=== PATIENT | male | born 1955 | race Caucasian/White ===

== ENCOUNTER 2021-01-25 07:42 | Outpatient (CLI) | payer OTHER, SELFPAY ==
--- NOTE | 2021-01-25 07:48 | USCV_ITS ---
Cy Hercules Age: 65 Gender: M : 1955 Exam Date: 01/25/2021 07:57 Ordering Phys: Dara Mcdonald MD Technologist: Luca Malone Exam Location: [facility] [place] Indication: AAA HISTORY: Diameter (cm) AP x Transverse x Length Velocity (cm/s) Waveform Prox Aorta: 2.03 x 2.22 x 59.50 Mid Aorta: 2.07 x 2.16 x 50.40 Distal Aorta: 1.97 x 2.19 x 81.00 Right Iliac Prox: 0.97 x 1.19 x 53.70 Left Iliac Prox: 1.32 x 1.29 x 77.70 Stent Prox Landing x x Aneurysmal Sac Max x x Lt Lat Sac Dim Rt Lat Sac Dim Stent Dist Landing x x Right Iliac Stent x x Left Iliac Stent x x Right Renal Art Left Renal Art FINDINGS: Mild diffuse plaques in the abdominal aorta Normal abdominal aortic dimension CONCLUSIONS No evidence of any aneurysm in the abdominal aorta or in the proximal common iliac arteries Mild diffuse plaques in the abdominal aorta Dr Jayna Okeefe MD [facility] (Electronically Signed) Final Date: 26 January 2021 13:43 S
== END 2021-01-25 07:43 | disposition home or self-care (01) ==
LOC: RAD 07:44
PROVIDERS: PCP Family Medicine; Visit Provider Family Medicine
DX: Z13.6 Encounter for screening for cardiovascular disorders (principal); F17.210 Nicotine dependence, cigarettes, uncomplicated
CPT/HCPCS: 76706

== ENCOUNTER 2021-08-29 10:45 | Inpatient (IN) | payer OTHER, MEDICARE, MEDICAID, SELFPAY ==
[2021-08-29] VITALS (54 sets, daily range): BP systolic 81–158; BP diastolic 42–107; PULSE 63–206; RESP 12–29; TEMP 36.6; O2SAT 85–100; BMI 22.4
--- NOTE | 2021-08-29 10:56 | CT_ITS ---
WS: [id number] CT ABDOMEN PELVIS TECHNIQUE: Noncontrast CT of the abdomen and pelvis with coronal and sagittal reformatted images. CLINICAL INFORMATION: abd pain COMPARISON: None. DLP: 1106.[address] scans at [facility] use at least one of these dose optimization techniques: automated e xposure control; mA and/or kV adjustment per patient size (includes targeted exams where dose is matc hed to clinical indication); or iterative reconstruction. FINDINGS: Lung bases are well aerated. Noncontrast liver is normal. Normal GE junction. Splenic granulomas. Fat ty atrophy of the pancreas. Splenic artery calcification. Gallbladder is contracted with nodular gall bladder contour likely due to cholesterolosis or adenomyomatosis. This can be followed up with ultras ound. Adrenal glands are normal. No hydronephrosis in either kidney. No obstructing renal or ureteral calculi. Normal Caliber abdominal aorta.Aortic calcification. Normal sigmoid colon. Normal appendix in the RIGHT lower quadrant. No evidence of small or large latesha l obstruction. No free fluid in the abdomen or pelvis. Mild spondylitic changes lumbar spine. CT/CT abdomen pelvis wo con [id number] IMPRESSION: 1. No evidence of small or large bowel obstruction. 2. No free fluid in the abdomen and pelvis. 3. Contracted gallbladder with increased attenuation nodular contour likely du e to cholesterolosis or adenomyomatosis. This can be followed up with ultrasoun d. 4. No hydronephrosis in either kidney. 5. No other significant findings.
--- NOTE | 2021-08-29 10:57 | ECG_ITS ---
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 Measurements Intervals [place] Rate: 89 P: 68 ME: 177 QRS: 95 QRSD: 79 T: 61 QT: 353 QTc: 429 Interpretive Statements SINUS RHYTHM BORDERLINE RIGHT AXIS DEVIATION [QRS AXIS > 90] No previous ECG available for comparison Electronically Signed On 08-29-2021 17:55:27 CDT by Morris Fiore M.D. [id number]
--- NOTE | 2021-08-29 11:02 | W.ED.GIBLEED ---
HPI - GI Bleed General: Chief complaint: GI Bleed Stated complaint: N/V/D Time Seen by Provider: 08/29/21 10:48 History of Present Illness: 65-year-old presents due to abdominal pain nausea vomiting and diarrhea. Does report bloody emesis and blood in stool. States that nausea vomiting diarrhea started today but he has had abdominal cramping and malaise for 3 weeks. Denies any history of liver disease or varices. Denies any history of heavy drinking or cirrhosis. Denies any blood thinners. Denies any chest pain shortness of breath fevers or chills. Denies any dysuria or urethral discharge. States abdominal pain is achy crampy and diffuse. Review of Systems Narrative: - CONSTITUTIONAL: Denies weight loss, fever and chills. - HEENT: Denies changes in vision and hearing. - RESPIRATORY: Denies SOB and cough. - CV: Denies palpitations and CP. - GI: As above - : Denies dysuria and urinary frequency. - MSK: Denies myalgia and joint pain. - SKIN: Denies rash and pruritus. - NEUROLOGICAL: Denies headache, weakness, numbness and syncope. - PSYCHIATRIC: Denies suicidal ideation Physical Exam Narrative: EXAM NARRATIVE: - GENERAL: Alert and oriented x 3. No acute distress. Well-nourished. - EYES: EOMI. Anicteric. - HENT: Atraumatic, no C-spine tenderness. Moist mucous membranes. No scleral icterus. No cervical lymphadenopathy. - LUNGS: Clear to auscultation bilaterally. No accessory muscle use. Equal lung sounds bilaterally. No respiratory distress. - CARDIOVASCULAR: Regular rate and rhythm. No murmur. No JVD. - ABDOMEN: Soft, mild diffuse tenderness, non-distended. Negative CVA tenderness bilaterally, no rebound or guarding, negative Bernard sign. No palpable masses. - EXTREMITIES: No edema. Non-tender. - SKIN: No rashes or lesions. Warm. - NEUROLOGIC: No meningismus or focal neurological deficits. CN II-XII grossly intact. - PSYCHIATRIC: Cooperative. Appropriate mood and affect. Course Vital Signs: Vital signs: Vital Signs Temperature 97.9 F 08/29/21 10:54 Pulse Rate 77 08/29/21 13:30 Respiratory Rate 18 08/29/21 13:30 Blood Pressure 88/58 08/29/21 13:30 Pulse Oximetry 100 08/29/21 13:30 MDM - GI Bleed Medical Decision Making 65-year-old presents with 2 nausea vomiting diarrhea. Does report blood in the stool and emesis. EKG does not show any acute ischemic change. Does have significant MEERA with creatinine elevation of 15. Patient initially also hypotensive. Improved with IV fluids. Troponins elevated to 115 however he is a poor candidate for heparinization or aspirin in light of his GI bleeding. EKG presenting onset of STEMI or acute abnormality. Will trend troponins but it is very likely that troponin elevation is secondary to reduced clearance and MEERA. He denies any chest pain or shortness of breath. Hemoglobin level is within normal limits. Type and cross sent. Remainder of lab work and imaging reviewed. Discussed with hospitalist and they agreed patient would benefit from admission. Patient admitted in guarded condition. Further evaluation management per hospitalist team. Lab Data : 08/29/21 11:02 08/29/21 11:02 Radiology Impressions Abdomen/Pelvis CT 08/29/21 10:56 IMPRESSION: 1. No evidence of small or large bowel obstruction. 2. No free fluid in the abdomen and pelvis. 3. Contracted gallbladder with increased attenuation nodular contour likely due to cholesterolosis or adenomyomatosis. This can be followed up with ultrasound. 4. No hydronephrosis in either kidney. 5. No other significant findings. Laboratory Results WBC 18.1 10^3/uL (4.0-10.0) H 08/29/21 11:02 RBC 5.85 10^6/uL (4.1-5.3) H 08/29/21 11:02 Hgb 17.6 g/dL (11.7-16.6) H 08/29/21 11:02 Hct 50.2 % (42.0-52.0) 08/29/21 11:02 MCV 85.8 fl (80-94) 08/29/21 11:02 MCH 30.1 pg (28.0-34.0) 08/29/21 11:02 MCHC 35.1 g/dL (30.0-36.0) 08/29/21 11:02 RDW 12.6 % (12.1-15.1) 08/29/21 11:02 Plt Count 168 10^3/cmm (130-400) 08/29/21 11:02 MPV 14.1 fL (7.4-10.4) H 08/29/21 11:02 Neut % (Auto) 88.8 % 08/29/21 11:02 Lymph % (Auto) 5.1 % 08/29/21 11:02 [place] % (Auto) 5.1 % 08/29/21 11:02 Eos % (Auto) 0.1 % 08/29/21 11:02 Baso % (Auto) 0.3 % 08/29/21 11:02 Neut # (Auto) 16.05 10^3/uL (1.8-7.7) H 08/29/21 11:02 Lymph # (Auto) 0.9 10^3/uL (0.8-4.8) 08/29/21 11:02 [place] # (Auto) 0.9 10^3/uL (0.2-0.9) 08/29/21 11:02 Eos # (Auto) 0.0 10^3/uL (0.0-0.8) 08/29/21 11:02 Baso # (Auto) 0.1 10^3/uL (0.0-0.1) 08/29/21 11:02 Nucleated RBC % (auto) 0 % 08/29/21 11:02 Nucleated RBCs # 0.0 /100WBC 08/29/21 11:02 PT 13.90 SECONDS (12.1-14.9) 08/29/21 11:02 INR 1.03 (0.8-1.2) 08/29/21 11:02 APTT 34.8 SECONDS (23.9-36.7) 08/29/21 11:02 Sodium 138 mmol/L (136-145) 08/29/21 11:02 Potassium 5.0 mmol/L (3.5-5.1) 08/29/21 11:02 Chloride 87 mmol/L (98-107) L 08/29/21 11:02 Carbon Dioxide 15 mmol/L (22-29) L 08/29/21 11:02 Anion Gap 41.0 (5-19) H 08/29/21 11:02 BUN 269 mg/dL (8-23) H* 08/29/21 11:02 Creatinine 15.9 mg/dL (0.7-1.2) H* 08/29/21 11:02 GFR Calculation 3.1 mL/min (90-130) L 08/29/21 11:02 Glucose 170 mg/dL (65-115) H 08/29/21 11:02 Calculated Osmolality 382 mOsm/kg (285-295) H 08/29/21 11:02 Lactate 1.5 mmol/L (0.5-2.2) 08/29/21 11:35 Calcium 9.9 mg/dL (8.5-10.5) 08/29/21 11:02 Total Bilirubin 0.4 mg/dL (0.15-1.2) 08/29/21 11:02 AST 11 U/L (0-40) 08/29/21 11:02 ALT 7 U/L (0-41) 08/29/21 11:02 Alkaline Phosphatase 96 IU/L (40-130) 08/29/21 11:02 Troponin T Baseline 115 ng/L (0-15) H* 08/29/21 11:02 Total Protein 8.5 g/dL (6.6-8.7) 08/29/21 11:02 Albumin 4.6 g/dL (3.5-5.2) 08/29/21 11:02 Globulin 3.9 g/dL (1.3-4.6) 08/29/21 11:02 Lipase 48 U/L (13-60) 08/29/21 11:02 SARS-CoV-2 Ag (Rapid) Negative (Negative) 08/29/21 11:20 Blood Type O Negative 08/29/21 11:35 Rho(D) Type Negative 08/29/21 11:35 Antibody Screen Negative 08/29/21 11:35 EKG Data EKG 1: Other EKG comments: Normal sinus rhythm, rate of 89, no sign of acute ischemia or other acute abnormality. Critical Care Time Critical Care Time: Critical Care Time: Yes Total Critical Care Time: 45 Attestation: This case had a high probability of a clinically significant, sudden, or life threatening deterioration of this patient's condition which required my full and direct attention, intervention and personal management. Discharge Plan Discharge Condition: Stable Referrals: Jose Miguel Ravi [Primary Care Provider] - Coding Level of Care Code ED Egg Pasteurizer for Chg Chari
[2021-08-29 11:09] LABS: Basophils # 0.1 10^3/uL (0.0-0.1); Basophils % 0.3 %; Eosinophils % 0.1 %; Hematocrit 50.2 % (42.0-52.0); Hemoglobin 17.6 g/dL (11.7-16.6); Lymphocytes # 0.9 10^3/uL (0.8-4.8); Lymphocytes % 5.1 %; Mean Corpuscular HGB Conc 35.1 g/dL (30.0-36.0); Mean Corpuscular Hemoglobin 30.1 pg (28.0-34.0); Mean Corpuscular Volume 85.8 fl (80-94); Mean Platelet Volume 14.1 fL (7.4-10.4); Monocytes # 0.9 10^3/uL (0.2-0.9); Monocytes % 5.1 %; Neutrophils # 16.05 10^3/uL (1.8-7.7); Neutrophils % 88.8 %; Nucleated Red Blood Cells % 0 %; Platelet Count 168 10^3/cmm (130-400); Red Blood Count 5.85 10^6/uL (4.1-5.3); Red Cell Distribution Width 12.6 % (12.1-15.1); White Blood Count 18.1 10^3/uL (4.0-10.0)
[2021-08-29] MEDS: sodium chloride 0.9% 1,000 ML 999 ML IV ×3 (11:12→14:15)
[2021-08-29] MEDS: pantoprazole 40 mg SDV IVP ×2 (11:14→17:49)
[2021-08-29] MEDS: ondansetron 2 mg/ML SDV 2 mL 4 MG IVP (11:15)
[2021-08-29 11:19] LABS: INR 1.03 (0.8-1.2); Partial Thromboplastin Time 34.8 SECONDS (23.9-36.7)
[2021-08-29 11:26] LABS: Alanine Aminotransferase 7 U/L (0-41); Albumin Level 4.6 g/dL (3.5-5.2); Alkaline Phosphatase 96 IU/L (40-130); Aspartate Amino Transferase 11 U/L (0-40); Calcium 9.9 mg/dL (8.5-10.5); Carbon Dioxide 15 mmol/L (22-29); Chloride 87 mmol/L (98-107); Globulin 3.9 g/dL (1.3-4.6); Glomerular Filtration Rate 3.1 mL/min (90-130); Glucose 170 mg/dL (65-115); Lipase 48 U/L (13-60); Sodium 138 mmol/L (136-145); Total Bilirubin 0.4 mg/dL (0.15-1.2); Total Protein 8.5 g/dL (6.6-8.7); Troponin(5th) Baseline 115 ng/L (0-15)
[2021-08-29 11:33] LABS: Osmolality Calculated 382 mOsm/kg (285-295)
[2021-08-29 11:34] LABS: Slide Review Slide Review Perform
[2021-08-29 11:35] LABS: Blood Urea Nitrogen 269 mg/dL (8-23)
[2021-08-29 11:46] LABS: SARS Covid-2 Antigen Negative (Negative)
[2021-08-29 12:00] LABS: Lactate (Lactic Acid level) 1.5 mmol/L (0.5-2.2)
[2021-08-29] MEDS: piperacillin-tazobactam 3.375 GM in sodium chloride 0.9% (plus) 50 ML IV ×2 (12:24→19:45)
[2021-08-29] MEDS: vancomycin 1,250 MG/250 ML PIGGYBACK 250 MG IV (13:02)
--- NOTE | 2021-08-29 13:55 | XR_ITS ---
WS: [id number] Portable AP upright chest, 08/29/2021 Clinical Data: baseline Comparison: None. Findings: No nodules, masses or effusions are seen. The heart is normal. The pulmonary vascularity is not increased. No pneumonia or pneumothorax is seen. The aortic arch shows mild tortuosity. Monitor leads are on the chest wall. XR/XR chest 1V portable [id number] Impression: Atherosclerosis.
--- NOTE | 2021-08-29 14:00 | USCV_ITS ---
DiomedesCy Age: 65 Gender: M : 1955 Exam Date: 08/29/2021 18:47 Ordering Phys: Kaci Sosa MD Technologist: RAD [place] [facility] [place]: elevated Troponin. No history of cardiac intervention per patient. BP: 101 / 59 HR: 66 Rhythm: Sinus Technical Quality: Adequate MEASUREMENTS (Male / Female) Normal Values 2D ECHO LV Diastolic Diameter PLAX 4.0 cm 4.2 - 5.9 / 3.9 - 5.3 cm LV Systolic Diameter PLAX 2.3 cm IVS Diastolic Thickness 1.3 cm 0.6 - 1.0 / 0.6 - 0.9 cm IVS Systolic Thickness 1.6 cm LVPW Diastolic Thickness 1.4 cm 0.6 - 1.0 / 0.6 - 0.9 cm LVPW Systolic Thickness 1.2 cm LVOT Diameter 2.0 cm LV Ejection Fraction 2D Teich 74.9 % LV Ejection Fraction MOD 2C 73.0 % LV Ejection Fraction 2C AL 73.4 % LA Diameter 3.6 cm LA Width 3.0 cm LA Height 4.7 cm RA Width 3.0 cm RA Height 4.0 cm Aorta at Sinotubular Diameter 3.5 cm IVC Diameter 1.9 cm M-MODE Aortic Annulus Diameter 3.3 cm LA Ao Ratio MM 1.2 MV E Point Septal Separation 0.6 cm DOPPLER AV Peak Velocity 134.0 cm/s LVOT Peak Velocity 98.0 cm/s AV Area Cont Eq vti 2.6 cm squared AV Area Cont Eq pk 2.4 cm squared MV Peak Velocity 93.0 cm/s MV Area PHT 2.5 cm squared Mitral E to A Ratio 0.8 MV E' Velocity 42.5 cm/s Mitral E to MV E' Ratio 10.6 Mitral E to LV E' Lateral Ratio 9.7 Mitral E to LV E' Septal Ratio 11.7 TR Peak Velocity 203.0 cm/s TR Peak Gradient 16.5 mmHg TV Peak E Velocity 48.0 cm/s Right Atrial Pressure 5.0 mmHg Pulmonary Artery Systolic Pressu 21.5 mmHg PV Peak Velocity 131.0 cm/s RV Acceleration Time 0.1 s RV Ejection Time 0.4 s RV AcT/ET 0.3 FINDINGS Left Ventricle Normal left ventricular size and systolic function, EF 70 %. No regional wall motion abnormalities. Right Ventricle The right ventricle is normal in size and function. Right Atrium The right atrium is normal in size. Left Atrium The left atrium is normal in size. Mitral Valve No gross abnormalities noted Aortic Valve Thickened aortic valve. Tricuspid Valve Trace tricuspid valve regurgitation. Pulmonic Valve Pulmonic valve not well visualized. Pericardium Normal pericardium without effusion. Aorta Normal aortic annulus size. IVC Normal inferior vena cava. CONCLUSIONS Normal left ventricular size and systolic function, EF 70 %. No regional wall motion abnormalities. Trace tricuspid valve regurgitation. There is no pericardial effusion. There are no intracardiac masses. No similar previous studies are available for comparison Dr Jayna Okeefe MD [facility] (Electronically Signed) Final Date: 29 August 2021 23:00 S
--- NOTE | 2021-08-29 14:00 | ECG_ITS ---
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 Measurements Intervals [place] Rate: 70 P: 69 IN: 179 QRS: 85 QRSD: 80 T: 57 QT: 388 QTc: 421 Interpretive Statements SINUS RHYTHM Compared to ECG 08/29/2021 11:15:11 No significant changes Electronically Signed On 08-29-2021 17:54:54 CDT by Morris Fiore M.D. [id number]
--- NOTE | 2021-08-29 14:01 | P.HP_ITS ---
Providers/Chief Complaint Primary Care Provider: Jose Miguel Ravi Chief Complaint: N/V/D History of Present Illness Cy Hercules is a 65 year old male with no significant past medical history except hypertension, hyperlipidemia presented to the ER today with complaint of nausea vomiting diarrhea. Going on for the last 3 weeks as per the . She states that she has asked him to come to the ER in the past but he was adamantly refusing. Then they lost power so she had to go to a neighbor's house to call EMS to bring him to the hospital. He has had episodes of mild confusion at times were it seems he dozes off but has not really had true altered mental status. She said about 3 weeks ago he started getting sick. He is had various kinds of foods, including Powerade, Gatorade, electrolyte mixes but has not been able to keep anything down including clear liquids. He has no appetite. He has been feeling weak. Diarrhea as present 2-3 episodes per day and is watery, no blood in it. There is no clear hematemesis but she says since yesterday she has seen a little bit of coffee-ground/blood-tinged material in the vomitus. Patient and his attribute that to him continuously retching. His epigastric region is a little sore to palpation due to repeated retching and dry heaving. Review of systems are negative other than what is noted above. He denies chest pain, shortness of breath, palpitations, constipation, feeling too hot or too cold, confused. Patient is alert oriented x3. He knows where he has he knows what is going on and able to provide a history. He says he is already feeling a little bit better after having IV fluids. Of note patient has been taking ibuprofen and etodolac daily for chronic pain. ER course: On arrival blood pressure borderline low. Patient given liter normal saline bolus and labs ordered. Labs significant for creatinine 15.1 and BUN to 69. He has not had any urine output since yesterday. Spears was placed and nothing much came out as per nursing staff. Hospitalist was called for admission. Troponin elevated 115. EKG did not reveal any ischemic changes. Past medical history Prediabetes Hypertension Hyperlipidemia Family history Mom and dad have diabetes No history of heart disease Social history Former smoker, quit August 27, 2021. Has smoked for 50 years Denies alcohol use Denies illicit drug use Follows with at [facility]. Medications/Allergies Home Medications Medication Instructions Recorded Confirmed Last Taken Type aspirin 81 mg tablet,delayed 81 mg PO DAILY 08/29/21 08/29/21 08/29/21 History release atorvastatin 40 mg tablet 20 mg PO QPM 08/29/21 08/29/21 08/28/21 History cholecalciferol (vitamin D3) 50 50 mcg PO DAILY 08/29/21 08/29/21 08/29/21 History mcg (2,000 unit) capsule etodolac 400 mg tablet,extended 400 mg PO DAILY 08/29/21 08/29/21 08/29/21 History release 24 hr ibuprofen 200 mg tablet (Advil) 200 mg PO Q6H PRN 08/29/21 08/29/21 Unknown History lisinopril 40 mg tablet 40 mg PO DAILY 08/29/21 08/29/21 08/29/21 History omega 7-rjb-ejx-fish oil 1,000 mg 1 cap PO BID 08/29/21 08/29/21 08/29/21 History (120 mg-180 mg) capsule (Fish Oil) Allergies Allergy/AdvReac Type Severity Reaction Status Date / Time No Known Allergies Allergy Verified 08/29/21 14:36 Vitals/I&O/Wt Last Vital Signs Temp 97.9 F 08/29/21 10:54 Pulse 77 08/29/21 13:30 Resp 18 08/29/21 13:30 BP 88/58 08/29/21 13:30 Pulse Ox 100 08/29/21 13:30 08/28/21 08/29/21 08/29/21 22:59 06:59 14:59 Intake Total 50 / 50 Balance 50 / 50 Weight last 48 hrs Weight 79.379 kg Physical Exam Narrative: General: Alert oriented x3, patient seen laying in bed appearing comfortable at this time. Appears severely dehydrated HEENT: Normocephalic, atraumatic, EOMI, dry oral mucosa, dry lips, appears deh ydrated hypovolemic Cardio: Regular rate rhythm, normal S1-S2, no murmurs, no chest pain Respiratory: Good bilateral air entry, no wheezes no rhonchi appreciated GI: Abdomen soft, nontender, nondistended, bowel sounds +, mild tenderness to palpation at epigastric region Behavior: Appropriate and cooperative Extremities: no edema, no cyanosis Data : 08/29/21 11:02 08/29/21 11:02 A&P Assessment and plan (1) Renal failure: Status: Acute (2) High anion gap metabolic acidosis: Status: Acute (3) Hypovolemia: Status: Acute (4) Hypotension: Status: Acute (5) Hematemesis: Status: Acute (6) Anuria: Status: Acute (7) Hypertension: Status: Acute (8) Hyperlipidemia: Status: Acute (9) Pre-diabetes: Status: Acute (10) Diarrhea: Status: Acute (11) Leukocytosis: Status: Acute Plan #Acute renal failure, anuric #Severe dehydration secondary to nausea, vomiting #Diarrhea, 2-3 episodes a day #High anion gap metabolic acidosis to uremia and element of possible starvation ketosis #Hypovolemia #Leukocytosis most likely stress response #Hematemesis -Status post 2 L normal saline bolus. Started normal saline 125 cc/h and fluid challenge patient. Patient may require dialysis within next 24 to 48 hours. -Continue on IV fluids for now. If needed may add vasopressors. Continue to monitor blood pressure. - Place Spears catheter, monitor for urine output ? Repeat labs in the morning ? Check procalcitonin, lactic acid, CPK, vasculitis work-up, creatinine, urine creatinine, phosphorus, TSH, uric acid. ? We will discuss nephrology regarding potential kidney biopsy at some point ? Continue to hydrate patient, add thiamine ? Keep n.p.o. for now ? Zofran and Reglan for nausea and vomiting ? Leukocytosis most likely stress response. Patient did receive 1 dose of Vanco and Zosyn in the ER but I will hold off on giving further antibiotics at this time ? Check blood cultures, check urine culture ? Stool studies for work-up of diarrhea, stool culture, C. difficile -Nephrology consulted and on board. Will await recommendations -We will continue to monitor patient's hemoglobin. I will add Protonix 40 twice daily for now. Hemoglobin 17.6 on admission. Seems to be hemoconcentrated. If he actively has more I will consider doing a complete GI work-up. For now we will FOBT and monitor patient. I will repeat labs tonight. #Hypertension #Hyperlipidemia #Prediabetes ? Hold all home medications for now Full code DVT prophylaxis: SCD for now. We will hold off on adding pharmacological DVT prophylaxis Attestations Medical Necessity Statement*: Patient will require ICU level care for m anagement of acute renal failure. I expect him to stay 48 to 72 hours in the hospital or longer. Critical Care Time: The high probability of a clinically significant, sudden or life threatening deterioration of the patient's [] system(s) required my full and direct attention, intervention and personal management. The critical care time is as shown. This time is in addition to time spent performing any reported procedures but includes the following: [x] Data and vital sign review and interpretation [x] Patient assessment, examination and intervention [x] Documentation [x] Medication orders and management Critical Care Time (min): 30 Coding Level of Care Code Acute Audiology Assistant for Chg Fwd Diagnoses Renal failure N19 High anion gap metabolic acidosis E87.2 Hypovolemia E86.1 Hypotension I95.9 Hematemesis K92.0 Anuria R34 Hypertension I10 Hyperlipidemia E78.5 Pre-diabetes R73.03 Diarrhea R19.7 Leukocytosis D72.829
[2021-08-29 14:36] LABS: Troponin 5 2HR 83.03 ng/L (0-15)
--- NOTE | 2021-08-29 16:00 | ECG_ITS ---
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 Measurements Intervals [place] Rate: 68 P: 68 MO: 187 QRS: 81 QRSD: 96 T: 54 QT: 412 QTc: 439 Interpretive Statements SINUS RHYTHM Compared to ECG 08/29/2021 14:13:58 No significant changes Electronically Signed On 08-29-2021 17:58:48 CDT by Morris Fiore M.D. [email or web address] [facility] [id number]
--- NOTE | 2021-08-29 16:34 | PM.CONSULT ---
Providers/Reason For Consult Consulting Physician/Specialty*: Nephrology Reason for Consult*: Renal Failure Attending Physician: Kaci Sosa MD Primary Care Provider: Jose Miguel Ravi History of Present Illness History of Present Illness Thank you for consultation, today had the pleasure of reviewing this very pleasant 65-year-old gentleman for evaluation of acute renal failure. He presented today to the hospital with complaints of nausea vomiting and hematemesis with some associated diarrhea with some abdominal cramping and malaise for last 3 weeks. On arrival, initial lab test demonstrated a significantly elevated creatinine of 15.9 and BUN of 269 with a bicarb of 15 and an anion gap of 41 with lactic acid of 1.5. He denies any knowledge of acute or chronic kidney disease, is never seen a kidney specialist or required hemodialysis. He said he had labs roughly 1 year ago at the [facility] where nothing abnormal was identified as far as he was aware. No difficulty passing his urine, however he has noticed that the volume of urine output has significantly decreased over the last week and a half. Urine is clear, nonbloody or cloudy. He started lisinopril roughly 6 months ago for hypertension. He takes a combination of Etodolac once daily as well as ibuprofen 400 mg twice daily and has done daily for the last 5 years for degenerative joint disease in his back. Denies any extremity edema or other hypervolemic symptoms. In regards to uremic symptoms, his does say that his mentation is foggy, he is more irritable and has episodes where he would look spacey. Normally has much less irritable disposition. Blood pressure is on the lower side, this is unusual for him. No other acute symptoms. No history of other systemic diseases except for hypertension Medications/Allergies Home Medications Medication Instructions Recorded Confirmed Last Taken Type aspirin 81 mg tablet,delayed 81 mg PO DAILY 08/29/21 08/29/21 08/29/21 History release atorvastatin 40 mg tablet 20 mg PO QPM 08/29/21 08/29/21 08/28/21 History cholecalciferol (vitamin D3) 50 50 mcg PO DAILY 08/29/21 08/29/21 08/29/21 History mcg (2,000 unit) capsule etodolac 400 mg tablet,extended 400 mg PO DAILY 08/29/21 08/29/21 08/29/21 History release 24 hr ibuprofen 200 mg tablet (Advil) 200 mg PO Q6H PRN 08/29/21 08/29/21 Unknown History lisinopril 40 mg tablet 40 mg PO DAILY 08/29/21 08/29/21 08/29/21 History omega 7-fxd-nmm-fish oil 1,000 mg 1 cap PO BID 08/29/21 08/29/21 08/29/21 History (120 mg-180 mg) capsule (Fish Oil) Allergies Allergy/AdvReac Type Severity Reaction Status Date / Time No Known Allergies Allergy Verified 08/29/21 14:36 Vitals/I&O/Wt Last Vital Signs Temp 97.9 F 08/29/21 10:54 Pulse 70 08/29/21 14:20 Resp 16 08/29/21 14:20 BP 90/60 08/29/21 14:20 Pulse Ox 100 08/29/21 14:20 08/29/21 08/29/21 08/29/21 06:59 14:59 22:59 Intake Total 50 / 50 Balance 50 / 50 Weight last 48 hrs Weight 79.379 kg Physical Exam Narrative: Constitutional: Awake, comfortable HEENT: Wet mucosa, no jvp, non icteric Lungs: Bilaterally clear without discernible wheeze or rales in all lung zones CVS: S1 S2, no murmurs Abdo: Soft, BS ok Ext 4: Minimal edema, peripheral perfusion with no cyanosis Neurological: Grossly non-focal Data : 08/29/21 11:02 08/29/21 11:02 Micro: Microbiology 08/29/21 13:01 Blood Culture - Preliminary Blood SPECIMEN COLLECTED 08/29/21 13:59 Blood Culture - Preliminary Blood SPECIMEN COLLECTED A&P Assessment and plan (1) Renal failure: 1. 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 Of note CT scan demonstrated normal atrophic appearing kidneys, suggesting that there is an element of acute renal failure. We lack any historical information for evaluation of chronicity. Any hematemesis may also lead to an further elevation of urea following gastric blood breakdown and reabsorption. Work-up to include urinalysis, urine sodium, creatinine, urea, protein We will get CPK, TSH, uric acid, SPEP, ANCA, KALEY with reflex, C3, C4. Will consider kidney biopsy in the next few days He has subtle uremic symptoms including mild tremor, mental fogginess but no other acute uremic symptoms at this time. With this in mind I will give him a chance to recover renal function over the next 24 hours, and if there is no recovery will initiate dialysis. Continue gentle IV hydration with isotonic IV fluids (see below) at 100 cc/h. Dose medication for GFR less than 15 Avoid usual nephrotoxins Strict I's and O's 2. Hematemesis Given his exposure to anti-inflammatory medications, at high risk of having peptic ulcer disease, gastric and esophagitis etc. If hematemesis becomes more profound, okay to give DDAVP for uremic platelet dysfunction. Hemoglobin 17.6 suggesting some element of hemoconcentration Close monitoring of H&H and vitals Management per general medicine 3. Chemistry Anion gap metabolic acidosis almost certainly secondary to severe uremia Will give half-normal saline with bicarb infusion Close monitoring of chemistry given his renal failure 4. Hemodynamics Blood pressure on the softer side, as we hydrate him, hopefully that should come in, close monitoring in the ICU. Keep MAP greater than 65 mmHg, pressors as needed. is at bedside, I answered all of her questions to her satisfaction. Thank you for consultation, it is a pleasure to follow these cases with you Exam and interview performed with aid of bedside RN using telemedicine Time spent 20 min inc > 50% of time in face to face counseling Mehul Swan MD [facility] [phone] Status: Acute Coding Level of Care Code Acute Tablet Technician for Abbyg Fwd Diagnoses Renal failure N19
[2021-08-29 17:32] LABS: Troponin 5 6HR 76.31 ng/L (0-15)
[2021-08-29] MEDS: sodium chloride 0.9% 1,000 ML 125 ML IV (17:49)
[2021-08-29 17:56] LABS: Complement C3 90 mg/dL (90-180); Creatine Phosphokinase 119 U/L (39-308); Thyroid Stimulating Hormone 0.89 uIU/mL (0.27-4.20); Uric Acid 15.2 mg/dL (3.4-7.0)
[2021-08-29] MEDS: sodium bicarbonate 150 MEQ in dextrose 5% 1,000 ML 100 MEQ IV (18:02)
[2021-08-29 18:04] LABS: Ketone (Acetest) Serum Negative (Negative)
[2021-08-29 18:16] LABS: Charge for UA Resulting for Rev
--- NOTE | 2021-08-29 18:19 | PC.NURSE ---
Pt was brought from ER at 1730. States only complaint is nausea. Spears started per orders. 700 mL of urine returned.
[2021-08-29 18:40] LABS: Procalcitonin 0.67 ng/mL (0-0.5)
[2021-08-29 18:43] LABS: Creatinine Urine, Random 138 mg/dL (39-259)
[2021-08-29 18:48] LABS: Add Urine Microscopic? YES; Bilirubin Urine Neg (Negative); Blood Urine 2+ (Negative); Glucose Urine UA Norm (Normal); Ketones Urine Negative (Negative); Leukocyte Esterase Urine Negative (Negative); Nitrate Urine Negative (Negative); Protein Urine Neg (Negative); UPRO/UCREAT Ratio 0.17 mg/mg CR; Urine Appearance Clear (CLEAR); Urine Color Yellow (Yellow); Urine Creatinine 135 mg/dL (39-259); Urine Protein Random 23 mg/dL; Urine Random Sodium 36 mmol/L; Urobilinogen Urine Norm (Negative); pH Urine 5 (5-7)
[2021-08-29 18:49] LABS: Add Urine Culture? Yes; Bacteria Urine 3+ /hpf; Bilirubin Urine Neg (Negative); Blood Urine 2+ (Negative); Glucose Urine UA Norm (Normal); Ketones Urine Negative (Negative); Leukocyte Esterase Urine Negative (Negative); Nitrate Urine Negative (Negative); Protein Urine Neg (Negative); RBC Urine 0-4 /hpf (0-2); Squamous Epithelial Cell Urine 0-4 /hpf (0-5); Urine Appearance Clear (CLEAR); Urine Color Yellow (Yellow); Urobilinogen Urine Norm (Negative); WBC Urine 0-4 /hpf (0-5); pH Urine 5 (5-7)
[2021-08-29 20:29] LABS: Anion Gap 30.5 (5-19); Calcium 8.2 mg/dL (8.5-10.5); Carbon Dioxide 17 mmol/L (22-29); Chloride 102 mmol/L (98-107); Glomerular Filtration Rate 3.7 mL/min (90-130); Glucose 148 mg/dL (65-115); Potassium 4.5 mmol/L (3.5-5.1); Sodium 145 mmol/L (136-145)
[2021-08-29 20:39] LABS: Osmolality Calculated 378 mOsm/kg (285-295)
[2021-08-29 20:41] LABS: Blood Urea Nitrogen 224 mg/dL (8-23)
--- NOTE | 2021-08-29 23:00 | ECG_ITS ---
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 Measurements Intervals [place] Rate: 66 P: 55 CA: 193 QRS: 66 QRSD: 85 T: 53 QT: 408 QTc: 429 Interpretive Statements SINUS RHYTHM Compared to ECG 08/29/2021 16:37:45 No significant changes Electronically Signed On 08-30-2021 0:26:46 CDT by Morris Fiore M.D. [id number]
[2021-08-30] VITALS (73 sets, daily range): BP systolic 87–134; BP diastolic 47–74; PULSE 50–80; RESP 9–28; TEMP 36.3–36.9; O2SAT 73–100; BMI 24.1
[2021-08-30] MEDS: acetaminophen 325 mg Tablet 650 MG PO (00:25)
[2021-08-30] MEDS: ondansetron 2 mg/ML SDV 2 mL 4 MG IVP (00:31)
[2021-08-30] MEDS: sodium chloride 0.9% 1,000 ML 125 ML IV (01:39)
[2021-08-30 02:44] LABS: Basophils # 0.1 10^3/uL (0.0-0.1); Basophils % 0.6 %; Eosinophils # 0.3 10^3/uL (0.0-0.8); Eosinophils % 2.3 %; Hematocrit 35.9 % (42.0-52.0); Hemoglobin 12.5 g/dL (11.7-16.6); Lymphocytes # 0.8 10^3/uL (0.8-4.8); Lymphocytes % 5.3 %; Mean Corpuscular HGB Conc 34.8 g/dL (30.0-36.0); Mean Corpuscular Hemoglobin 29.5 pg (28.0-34.0); Mean Corpuscular Volume 84.7 fl (80-94); Monocytes # 0.7 10^3/uL (0.2-0.9); Monocytes % 4.9 %; Neutrophils # 12.45 10^3/uL (1.8-7.7); Neutrophils % 86.4 %; Nucleated Red Blood Cells % 0 %; Platelet Count 95 10^3/cmm (130-400); Red Blood Count 4.24 10^6/uL (4.1-5.3); Red Cell Distribution Width 12.6 % (12.1-15.1); White Blood Count 14.4 10^3/uL (4.0-10.0)
[2021-08-30 03:19] LABS: Alanine Aminotransferase < 5 U/L (0-41); Alkaline Phosphatase 57 IU/L (40-130); Anion Gap 26.2 (5-19); Aspartate Amino Transferase 10 U/L (0-40); Carbon Dioxide 19 mmol/L (22-29); Chloride 105 mmol/L (98-107); Globulin 2.4 g/dL (1.3-4.6); Glomerular Filtration Rate 4.1 mL/min (90-130); Glucose 159 mg/dL (65-115); Magnesium 2.9 mg/dL (1.7-2.3); Potassium 4.2 mmol/L (3.5-5.1); Sodium 146 mmol/L (136-145); Total Bilirubin 0.3 mg/dL (0.15-1.2); Total Protein 5.4 g/dL (6.6-8.7)
--- NOTE | 2021-08-30 03:30 | PC.NURSE ---
Blood Pressure At 0200, Patient's blood pressure 92/50 MAP 64, with a systolic ranging from 87-95 systolic, 51-[address] Peoples notified; order received to do a cheetah assessment and for a CBC. Cheetah assessment completed: result 7.1% SVI, patient not fluid responsive. Dr. Peoples notified; order received to hold both the NS and bicarb fluids. Fluids stopped per APR. CBC completed per labs. At 0317, patient's blood pressure 75/49. Dr. Peoples notified; order received for levophed drip and to restart bicarb drip at 50 ml/hr. Medications administered per APR.
[2021-08-30] MEDS: sodium bicarbonate 150 MEQ in dextrose 5% 1,000 ML 50 MEQ IV (03:35)
[2021-08-30 03:49] LABS: Osmolality Calculated 376 mOsm/kg (285-295)
[2021-08-30 03:51] LABS: Blood Urea Nitrogen 210 mg/dL (8-23); Phosphorus 8.1 mg/dL (2.5-4.5)
[2021-08-30 06:15] LABS: ABG PCO2 28.3 mmHg (35-45); ABG PH Result 7.43 (7.35-7.45); Alveolar-Arterial Oxygen Gradi 3.5 mmHg (5-10); Base Excess ABG -4.5 mmol/L (-2.0-2.0); Blood Gas Allen Test Pos; Blood Gas Sample Type Arterial; Carboxyhemoglobin 0.5 %THgb (0.4-20.1); HCO3 ABG 18.6 mmol/L (22-26); HGB O2 Sat 96.6 % (95-100); Ionized Calcium Level - ABG 1.1 mmol/L (1.1-1.4); Methemoglobin 0.6 % (0.4-1.5); Oxygen Saturation ABG 97.6; PO2 ABG 86.3 mmHg (80.0-100.0); Potassium Level - ABG 3.9 mmol/L (3.5-5.0); Total Hemoglobin 13.7 g/dL (14-18)
[2021-08-30] MEDS: pantoprazole 40 mg SDV IVP ×2 (06:15→17:10)
[2021-08-30 06:17] LABS: Blood Gas Operator Identificat JB
[2021-08-30 06:18] LABS: Blood Gas Sample Site Brachial, left
[2021-08-30] MEDS: piperacillin-tazobactam 3.375 GM in sodium chloride 0.9% (plus) 50 ML IV ×2 (08:00→20:19)
[2021-08-30] MEDS: lactated ringers 1,000 ML 100 ML IV ×2 (08:58→18:45)
--- NOTE | 2021-08-30 09:15 | PM.PN ---
Subjective Subjective: Mr. Hercules has started making urine. This is wonderful news and heralds the initial recovery of his renal failure. Tremor seems less today and no other overt uremic symptoms. Remains on IV fluid with no symptoms of hypervolemia. Vitals/I&O/Wt Last Vital Signs Temp 98.4 F 08/30/21 08:00 Pulse 65 08/30/21 08:15 Resp 16 08/30/21 08:15 BP 100/54 08/30/21 08:15 Pulse Ox 98 08/30/21 08:15 08/29/21 08/30/21 08/30/21 22:59 06:59 14:59 Intake Total 6437.295 / 6512.295 269.167 / 269.167 Output Total 1600 / 1600 Balance 4837.295 / 4912.295 269.167 / 269.167 Weight last 48 hrs Weight 85.275 kg Weight 79.379 kg Physical Exam Narrative: Constitutional: Awake, comfortable HEENT: Wet mucosa, no jvp, non icteric Lungs: Bilaterally clear without discernible wheeze or rales in all lung zones CVS: S1 S2, no murmurs Abdo: Soft, BS ok Ext 4: Minimal edema, peripheral perfusion with no cyanosis Neurological: Grossly non-focal Urinary Catheter Management: Spears: Cath Placed During This Visit: yes Reason for Continuing Indwelling Catheter: Accurate Measurement of Urinary Output in Critically Ill Patients Urinary Catheter Date of Insertion: 08/29/21 Urinary Catheter Time of Insertion: 18:12 Data : 08/30/21 02:28 08/30/21 02:28 Micro: Microbiology 08/29/21 13:01 Blood Culture - Preliminary Blood SPECIMEN COLLECTED 08/29/21 13:59 Blood Culture - Preliminary Blood SPECIMEN COLLECTED A&P Assessment and plan (1) Renal failure: 1. Renal failure Creatinine is starting to trend down and urine output increasing. We may have got extremely prabhjot. 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 Of note CT scan demonstrated normal atrophic appearing kidneys, suggesting that there is an element of acute renal failure. We lack any historical information for evaluation of chronicity. Continue gentle IV hydration with isotonic IV fluids (see below) at 100 cc/h. Dose medication for GFR less than 15 Avoid usual nephrotoxins Strict I's and O's 2. Hematemesis Given his exposure to anti-inflammatory medications, at high risk of having peptic ulcer disease, gastric and esophagitis etc. If hematemesis becomes more profound, okay to give DDAVP for uremic platelet dysfunction. Hemoglobin 17.6 suggesting some element of hemoconcentration Close monitoring of H&H and vitals Management per general medicine 3. Chemistry Improving lytes Anion gap metabolic acidosis almost certainly secondary to severe uremia Change ivf to LR at 100mL/hr Close monitoring of chemistry given his renal failure 4. Hemodynamics Blood pressure on the softer side, as we hydrate him, hopefully that should come in, close monitoring in the ICU. Keep MAP greater than 65 mmHg, pressors as needed. is at bedside, I answered all of her questions to her satisfaction. Thank you for consultation, it is a pleasure to follow these cases with you Exam and interview performed with aid of bedside RN using telemedicine Time spent 20 min inc > 50% of time in face to face counseling Mehul Swan MD [facility] [phone] Status: Acute Attestations Medical Necessity Statement*: eval for renal failure Coding Level of Care Code Acute Park Guide for Chg Fwd Diagnoses Renal failure N19
--- NOTE | 2021-08-30 12:58 | PM.CONSULT ---
Providers/Reason For Consult Consulting Physician/Specialty*: Scott Sky MD Reason for Consult*: Porcelain gallbladder Requesting Physician: Dr. Sosa Attending Physician: Kaci Sosa MD Primary Care Provider: Jose Miguel Ravi History of Present Illness History of Present Illness Mr. Cy Hecrules is a 65 year old male with multiple medical comorbidities. Admitted to the hospitalist service on 08/29/2021. Apparently the patient has been having nausea vomiting and diarrhea that ended up by acute renal failure. Likely due to severe dehydration. 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 No evidence of small or large bowel obstruction. 2.? No free fluid in the abdomen and pelvis. 3.? Contracted gallbladder with increased attenuation nodular contour likely due to cholesterolosis or adenomyomatosis. This can be followed up with ultrasound. 4.? No hydronephrosis in either kidney. 5.? No other significant findings. ? Ultrasound gallbladder that showed 1.? Contracted shadowing gallbladder with thickened echogenic wall most compatible with porcelain gallbladder with intraluminal sludge. Wall thickening measures up to 9 mm. Porcelain gallbladder has been associated with increased risk of malignancy. Recommend surgical consultation. 2.? Normal common bile duct measuring 5 mm. 3.? No hydronephrosis in RIGHT kidney. 4.? Liver is unremarkable. General surgery was consulted for further evaluation potential management Review of Systems General: Reports: 10 or more systems reviewed and unremarkable except in HPI and below Medications/Allergies Home Medications Medication Instructions Recorded Confirmed Last Taken Type aspirin 81 mg tablet,delayed 81 mg PO DAILY 08/29/21 08/29/21 08/29/21 History release atorvastatin 40 mg tablet 20 mg PO QPM 08/29/21 08/29/21 08/28/21 History cholecalciferol (vitamin D3) 50 50 mcg PO DAILY 08/29/21 08/29/21 08/29/21 History mcg (2,000 unit) capsule etodolac 400 mg tablet,extended 400 mg PO DAILY 08/29/21 08/29/21 08/29/21 History release 24 hr ibuprofen 200 mg tablet (Advil) 200 mg PO Q6H PRN 08/29/21 08/29/21 Unknown History lisinopril 40 mg tablet 40 mg PO DAILY 08/29/21 08/29/21 08/29/21 History omega 1-iqp-cox-fish oil 1,000 mg 1 cap PO BID 08/29/21 08/29/21 08/29/21 History (120 mg-180 mg) capsule (Fish Oil) Allergies Allergy/AdvReac Type Severity Reaction Status Date / Time No Known Allergies Allergy Verified 08/30/21 16:57 Current Medications Generic Name Dose Route Start Last Admin Trade Name Freq PRN Reason Stop Dose Admin Acetaminophen 650 mg 08/30/21 00:16 08/30/21 00:25 Acetaminophen 325 Mg Tablet PO 650 mg Q4H PRN Administration MILD PAIN OR INCREASE TEMP Piperacillin Sod/Tazobactam 50 mls @ 12.5 mls/hr 08/29/21 20:00 08/30/21 12:55 Sod 3.375 gm/ Sodium Chloride IV Infused Q12H JUNO Infusion Protocol Norepinephrine Bitartrate 4 mg 254 mls @ 0 mls/hr 08/30/21 03:30 08/30/21 04:34 / Dextrose IV 4 mcg/min .Q0M JUNO 15.24 mls/hr Titration Protocol Per Protocol Lactated Ringer's 1,000 mls @ 100 mls/hr 08/30/21 08:45 08/30/21 08:58 Lactated Ringers IV 100 mls/hr .Q10H JUNO Administration Ondansetron HCl 4 mg 08/29/21 13:55 08/30/21 00:31 Ondansetron 2 Mg/Ml Sdv 2 Ml IVP 4 mg Q6H PRN Administration NAUSEA AND VOMITING Pantoprazole Sodium 40 mg 08/29/21 18:00 08/30/21 06:15 Pantoprazole 40 Mg Sdv IVP 40 mg Q12H JUNO Administration Thiamine HCl 100 mg 08/30/21 09:00 08/30/21 08:01 Thiamine 100 Mg/Ml Sdv IVP 100 mg DAILY JUNO Administration Vitals/I&O/Wt Last Vital Signs Temp 98.4 F 08/30/21 08:00 Pulse 60 08/30/21 12:00 Resp 18 08/30/21 12:00 BP 109/62 08/30/21 12:00 Pulse Ox 98 08/30/21 12:00 08/29/21 08/30/21 08/30/21 22:59 06:59 14:59 Intake Total 6437.295 / 6512.295 319.167 / 319.167 Output Total 1600 / 1600 Balance 4837.295 / 4912.295 319.167 / 319.167 Weight last 48 hrs Weight 188 lb Weight 175 lb Physical Exam Const: COMMON NORMALS: no acute distress and patient oriented x3 GENERAL APPEARANCE: cooperative ORIENTATION/CONSCIOUSNESS: Yes awake, Yes oriented to person, Yes oriented to place and Yes oriented to time HENMT: COMMON NORMALS: normocephalic HEAD & SCALP: normocephalic Eye: COMMON NORMALS: Equal, round and reactive pupils present and no scleral icterus PUPIL: Yes Equal, round and reactive pupils present Lymph: LYMPHATIC: no lymphadenopathy noted Chest: COMMONS NORMALS: normal inspection of the chest Resp: COMMON NORMALS: normal respiratory effort and clear to auscultation bilaterally AUSCULTATION: clear to auscultation bilaterally Cardio: COMMON NORMALS: S1 normal heart sound present and S2 normal heart sound present; negative for No murmurs present (Cardio) HEART SOUNDS: S1 normal heart sound present and S2 normal heart sound present GI: COMMON NORMALS: Soft to palpation; negative for No hepatosplenomegaly present INSPECTION: Yes normal to inspection PALPATION: Yes Soft to palpation, No Firmness to palpation present (GI), No Tenderness to palpation present (GI), No Guarding due to palpation present (GI), No Rigid due to palpation and No No hepatosplenomegaly present Neuro: COMMON NORMALS: patient oriented x3 SENSORIUM/ORIENTATION: Yes oriented to person, Yes oriented to place and Yes oriented to time Psych: COMMON NORMALS: mental status grossly normal Skin: COMMON NORMALS: no rashes or lesions noted GENERAL SKIN EXAM: no rashes or lesions noted Urinary Catheter Management: Spears: Cath Placed During This Visit: yes Reason for Continuing Indwelling Catheter: Accurate Measurement of Urinary Output in Critically Ill Patients Urinary Catheter Date of Insertion: 08/29/21 Urinary Catheter Time of Insertion: 18:12 Data : 08/31/21 05:36 08/31/21 05:36 Micro: Microbiology 08/29/21 13:01 Blood Culture - Preliminary Blood SPECIMEN COLLECTED 08/29/21 13:59 Blood Culture - Preliminary Blood SPECIMEN COLLECTED A&P Assessment and plan (1) Porcelain gallbladder: After history taking physical examination and reviewing the chart and images with my personal interpretation. I believe that the patient's severe dehydration ended up by acute renal failure. From Surgical standpoint of view I do not believe that the porcelain gallbladder would contribute to the patient's current status.Once the patient is discharged from the hospital I am happy to reevaluate him as an outpatient for potential laparoscopic gallbladder surgery. Particularly porcelain gallbladder is highly correlated with gallbladder cancer The plan of care has been discussed with the patient had agreed on that Thank you for consulting general surgery to participate taking care Assurance and education All questions have been answered and all concerns have been addressed to patient's satisfaction. Status: Acute Consult Attestations Medical Necessity Statement: Per admitting service Coding Level of Care Code Acute Parachute Manufacturing Supervisor for g Fwd Exam Comprehensive Diagnoses Porcelain gallbladder K82.8
--- NOTE | 2021-08-30 13:28 | PM.PN ---
Subjective Subjective: Urine output 1600 cc overnight Requiring levophed, on 4 mc this morning Feeling better WBC 43641 RUQ US showed porcelain GB Platelets 95 this AM Vitals/I&O/Wt Last Vital Signs Temp 98.4 F 08/30/21 08:00 Pulse 60 08/30/21 12:00 Resp 18 08/30/21 12:00 BP 109/62 08/30/21 12:00 Pulse Ox 98 08/30/21 12:00 08/29/21 08/30/21 08/30/21 22:59 06:59 14:59 Intake Total 6437.295 / 6512.295 319.167 / 319.167 Output Total 1600 / 1600 Balance 4837.295 / 4912.295 319.167 / 319.167 Weight last 48 hrs Weight 85.275 kg Weight 79.379 kg Physical Exam Narrative: General: Alert oriented x3, patient seen laying in bed appearing comfortable at this time. Appears better today HEENT: Normocephalic, atraumatic, EOMI, Cardio: Regular rate rhythm, normal S1-S2, no murmurs, no chest pain Respiratory: Good bilateral air entry, no wheezes no rhonchi appreciated GI: Abdomen soft, nontender, nondistended, bowel sounds +, mild tenderness to palpation at epigastric region yesterday as resolved today. No abdominal pain on palpation Behavior: Appropriate and cooperative Extremities: no edema, no cyanosis ? Urinary Catheter Management: Marin: Cath Placed During This Visit: yes Reason for Continuing Indwelling Catheter: Accurate Measurement of Urinary Output in Critically Ill Patients Urinary Catheter Date of Insertion: 08/29/21 Urinary Catheter Time of Insertion: 18:12 Data : 08/30/21 02:28 08/30/21 02:28 Micro: Microbiology 08/29/21 13:01 Blood Culture - Preliminary Blood SPECIMEN COLLECTED 08/29/21 13:59 Blood Culture - Preliminary Blood SPECIMEN COLLECTED A&P Assessment and plan (1) Leukocytosis: Status: Acute (2) Diarrhea: Status: Acute (3) Pre-diabetes: Status: Acute (4) Hyperlipidemia: Status: Acute (5) Hypertension: Status: Acute (6) Anuria: Status: Acute (7) Hematemesis: Status: Acute (8) Hypotension: Status: Acute (9) Hypovolemia: Status: Acute (10) High anion gap metabolic acidosis: Status: Acute (11) Renal failure: Status: Acute Plan #Acute renal failure, anuric #Severe dehydration secondary to nausea, vomiting #Diarrhea, 2-3 episodes a day #High anion gap metabolic acidosis to uremia and element of possible starvation ketosis #Hypovolemia #Leukocytosis most likely stress response, but infection not ruled out #Hematemesis #Thrombocytopenia 2/2 most likely uremia #Porcelain Gallbladder #Elevated trop at admission -Bicarb drip stopped this AM - Continue levophed and wean as able - Consult gen surg for gallbladder findings. - Continue marin, accurate i/o - Start clear liquids - Workup for vasculitis pending. - Nephro on board. Appreciate recommendations. No plan for dialysis for now. - Pt may need kidney biopsy possibly. ? Continue to hydrate patient, add thiamine ? Zofran and Reglan for nausea and vomiting ? Leukocytosis most likely stress response.? Patient did receive 1 dose of Vanco and Zosyn in the ER. - Procal elevated. Will continue on zosyn for now. ? Check blood cultures, check urine culture ? Stool studies for work-up of diarrhea, stool culture, C. difficile - Hb 12.1 today. Will continue to monitor. - Possible addition of DDAVP for uremic platelet dysfunction. - Trop elevation most likely due to demand ischemia. Echo negative for WMA. EF 70%. Discussed with cardiology. Will monitor pt for now. THere has been no chest pain. EKG negative for ischemia. Delta trop negative. #Hypertension #Hyperlipidemia #Prediabetes ? Hold all home medications for now Full code DVT prophylaxis: SCD for now.? We will hold off on adding pharmacological DVT prophylaxis Attestations Medical Necessity Statement*: Requires icu level care for all of the above Coding Level of Care Code Acute Carbon Blocks Press Operator for Chg Fwd Diagnoses Leukocytosis D72.829 Diarrhea R19.7 Pre-diabetes R73.03 Hyperlipidemia E78.5 Hypertension I10 Anuria R34 Hematemesis K92.0 Hypotension I95.9 Hypovolemia E86.1 High anion gap metabolic acidosis E87.2 Renal failure N19
--- NOTE | 2021-08-30 14:03 | US_ITS ---
WS: [id number] ULTRASOUND ABDOMEN LIMITED CLINICAL INFORMATION: gallbladder eval COMPARISON: None. FINDINGS: Liver Size: Normal. Craniocaudal length: 16.7 cm. Echogenicity: Normal. Surface nodularity: None. Mass (size and location): None. Bile ducts Intrahepatic ducts: Normal. Common bile duct diameter: 0.5 cm. Gallbladder Thickened echogenic gallbladder wall with clean shadowing. Gallbladder is contracted. Findings suspic ious for porcelain gallbladder with wall thickening measuring 9 mm. Gallstones: None. Gallbladder sludge: Present Gallbladder wall thickening: Present Pericholecystic fluid: None. Sonographic Bernard sign: Absent. Pancreas Normal as visualized. Right kidney: Normal. Hydronephrosis: None. Size: 11.6 cm x 1.8 cm x 6.2 cm. Abdominal aorta and IVC Visualized portions are normal. Ascites: None. US/US abdomen limited [id number] IMPRESSION: 1. Contracted shadowing gallbladder with thickened echogenic wall most compati ble with porcelain gallbladder with intraluminal sludge. Wall thickening measur es up to 9 mm. Porcelain gallbladder has been associated with increased risk of malignancy. Recommend surgical consultation. 2. Normal common bile duct measuring 5 mm. 3. No hydronephrosis in RIGHT kidney. 4. Liver is unremarkable.
--- NOTE | 2021-08-30 18:32 | PC.NURSE ---
Pt resting in bed. Denies any needs, making adequate UOP to marin cath. Dinner tray at bedside. Pt sipping on clear liquids and nepro. VSS. Bradycardic at times. Will monitor.
[2021-08-31] VITALS (25 sets, daily range): BP systolic 80–149; BP diastolic 39–89; PULSE 48–76; RESP 11–23; TEMP 36.4–36.5; O2SAT 93–100
[2021-08-31] MEDS: ondansetron 2 mg/ML SDV 2 mL 4 MG IVP (04:17)
[2021-08-31] MEDS: lactated ringers 1,000 ML 100 ML IV (04:24)
[2021-08-31] MEDS: pantoprazole 40 mg SDV IVP ×2 (05:28→17:42)
[2021-08-31 05:54] LABS: Basophils # 0.1 10^3/uL (0.0-0.1); Basophils % 0.6 %; Eosinophils # 0.5 10^3/uL (0.0-0.8); Eosinophils % 3.9 %; Hematocrit 40.9 % (42.0-52.0); Hemoglobin 14.2 g/dL (11.7-16.6); Lymphocytes # 0.8 10^3/uL (0.8-4.8); Lymphocytes % 6.5 %; Mean Corpuscular HGB Conc 34.7 g/dL (30.0-36.0); Mean Corpuscular Hemoglobin 30.3 pg (28.0-34.0); Mean Corpuscular Volume 87.2 fl (80-94); Monocytes # 0.6 10^3/uL (0.2-0.9); Monocytes % 5.3 %; Nucleated Red Blood Cells % 0 %; Platelet Count 94 10^3/cmm (130-400); Red Blood Count 4.69 10^6/uL (4.1-5.3); Red Cell Distribution Width 12.9 % (12.1-15.1); White Blood Count 12.2 10^3/uL (4.0-10.0)
[2021-08-31 05:55] LABS: Mean Platelet Volume 14.2 fL (7.4-10.4)
[2021-08-31 06:13] LABS: Alanine Aminotransferase 6 U/L (0-41); Albumin Level 3.3 g/dL (3.5-5.2); Alkaline Phosphatase 64 IU/L (40-130); Aspartate Amino Transferase 12 U/L (0-40); Calcium 8.7 mg/dL (8.5-10.5); Carbon Dioxide 25 mmol/L (22-29); Chloride 112 mmol/L (98-107); Glomerular Filtration Rate 7.2 mL/min (90-130); Glucose 111 mg/dL (65-115); Magnesium 2.5 mg/dL (1.7-2.3); Sodium 153 mmol/L (136-145); Total Bilirubin 0.3 mg/dL (0.15-1.2); Total Protein 6.3 g/dL (6.6-8.7)
[2021-08-31 06:26] LABS: Blood Urea Nitrogen 177 mg/dL (8-23); Osmolality Calculated 375 mOsm/kg (285-295)
[2021-08-31 06:27] LABS: PROTEIN, TOTAL 5.8 g/dL (6.1-8.1)
[2021-08-31] MEDS: piperacillin-tazobactam 3.375 GM in sodium chloride 0.9% (plus) 50 ML IV (07:33)
--- NOTE | 2021-08-31 11:27 | P.PN_ITS ---
Subjective Subjective: Seen via telemedicine with assistance of RN at bedside. Vitals/I&O/Wt Last Vital Signs Temp 97.6 F 08/31/21 04:00 Pulse 53 L 08/31/21 10:00 Resp 18 08/31/21 10:00 BP 108/56 08/31/21 10:00 Pulse Ox 96 08/31/21 10:00 08/30/21 08/31/21 08/31/21 22:59 06:59 14:59 Intake Total 1335.671 / 6631.219 5948 / 3034.552 100 / 100 Output Total 900 / 1900 1150 / 3050 Balance 435.671 / -120.448 105 / -15.448 100 / 100 Weight last 48 hrs Weight 88.995 kg Weight 85.275 kg Physical Exam Narrative: alert, reports thirst, no pain Resp: COMMON NORMALS: clear to auscultation bilaterally AUSCULTATION: clear to auscultation bilaterally Cardio: COMMON NORMALS: regular rhythm RHYTHM: regular rhythm Extremity: NARRATIVE EXTREMITY EXAM: 1+ LE edema Urinary Catheter Management: Spears: Cath Placed During This Visit: yes Reason for Continuing Indwelling Catheter: Accurate Measurement of Urinary Output in Critically Ill Patients Urinary Catheter Date of Insertion: 08/29/21 Urinary Catheter Time of Insertion: 18:12 Data : 08/31/21 05:36 08/31/21 05:36 Micro: Microbiology 08/29/21 18:05 Urine Culture - Final Urine,Clean Catch 08/30/21 18:37 C.difficile Toxin B Gene (PCR) - Final Stool 08/30/21 18:37 Stool Lactoferrin - Final Stool Occult Blood (FIT) - Final 08/29/21 13:01 Blood Culture - Preliminary Blood NEGATIVE TO DATE 08/29/21 13:59 Blood Culture - Preliminary Blood NEGATIVE TO DATE CT Abd/Pel: Radiologist's impression: Adrenal glands are normal. No hydronephrosis in either kidney. No obstructing renal or ureteral calculi. ABG Interpretation 1: 08/30/21 04:00 ABG pH 7.43 ABG pCO2 28.3 L ABG pO2 86.3 ABG HCO3 18.6 L ABG O2 Saturation 97.6 ABG Base Excess -4.5 L Other data: Ck, urine protein/Cr, complements normal FeNa 2.5% phos 8, albumin 3.3, Mg 2.5, Ca 8.7 A&P Assessment and plan (1) Hypernatremia: Status: Acute Plan 1. Acute kidney injury, urine output improving. Presumed prerenal, vasculitis workup pending 2. Hypernatremia Recommend: change IVF to 1/2NSS, D5W 250 ml x 1, increase water intake. Q12h BMP Attestations Medical Necessity Statement*: critically ill in ICU Time Spent in Patient Care: 16 - 35 minutes Coding Level of Care Code Acute Photogrammetrist for Chg Fwd Diagnoses Hypernatremia E87.0
[2021-08-31] MEDS: sodium chloride 0.45% 1,000 ML 100 ML IV (12:22)
[2021-08-31] MEDS: dextrose 5 % 500 ML 250 ML IV (12:22)
--- NOTE | 2021-08-31 13:11 | P.PN_ITS ---
Subjective Subjective: seen today. pt asleep comfortably. at bedside positive for c.diff, koffio started overnight able to have dinner last night. no longer having n/v sodium high today 153, labs improving slowly Vitals/I&O/Wt Last Vital Signs Temp 97.6 F 08/31/21 04:00 Pulse 57 L 08/31/21 12:00 Resp 11 L 08/31/21 12:00 BP 98/40 08/31/21 12:00 Pulse Ox 97 08/31/21 12:00 08/30/21 08/31/21 08/31/21 22:59 06:59 14:59 Intake Total 1335.671 / 9335.434 6337 / 3034.552 400 / 400 Output Total 900 / 1900 1150 / 3050 Balance 435.671 / -120.448 105 / -15.448 400 / 400 Weight last 48 hrs Weight 88.995 kg Weight 85.275 kg Physical Exam Narrative: General: Alert oriented x3, patient seen laying in bed appearing c omfortable at this time. Appears better today HEENT: Normocephalic, atraumatic, EOMI, Cardio: Regular rate rhythm, normal S1-S2, no murmurs, no chest pain Respiratory: Good bilateral air entry, no wheezes no rhonchi appreciated GI: Abdomen soft, nontender, nondistended, bowel sounds +, Behavior: Appropriate and cooperative Extremities: no edema, no cyanosis ? Urinary Catheter Management: Marin: Cath Placed During This Visit: yes Reason for Continuing Indwelling Catheter: Accurate Measurement of Urinary Output in Critically Ill Patients Urinary Catheter Date of Insertion: 08/29/21 Urinary Catheter Time of Insertion: 18:12 Data : 08/31/21 05:36 08/31/21 05:36 Micro: Microbiology 08/29/21 18:05 Urine Culture - Final Urine,Clean Catch 08/30/21 18:37 C.difficile Toxin B Gene (PCR) - Final Stool 08/30/21 18:37 Stool Lactoferrin - Final Stool Occult Blood (FIT) - Final 08/29/21 13:01 Blood Culture - Preliminary Blood NEGATIVE TO DATE 08/29/21 13:59 Blood Culture - Preliminary Blood NEGATIVE TO DATE A&P Assessment and plan (1) Hypernatremia: Status: Acute (2) Porcelain gallbladder: Status: Acute (3) Leukocytosis: Status: Acute (4) Diarrhea: Status: Acute (5) Pre-diabetes: Status: Acute (6) Hyperlipidemia: Status: Acute (7) Hypertension: Status: Acute (8) Anuria: Status: Acute (9) Hematemesis: Status: Acute (10) Hypotension: Status: Acute (11) Hypovolemia: Status: Acute (12) High anion gap metabolic acidosis: Status: Acute (13) Renal failure: Status: Acute (14) Clostridioides difficile diarrhea: Status: Acute Plan #Acute renal failure, anuric #Severe dehydration secondary to nausea, vomiting - Resolved #Diarrhea, 2-3 episodes a day, C.diff positive #High anion gap metabolic acidosis to uremia and element of possible starvation ketosis - Improving #Hypovolemia #Leukocytosis most likely stress response, and C.diff #Hematemesis - Resolved #Thrombocytopenia 2/2 most likely uremia #Porcelain Gallbladder #Elevated trop at admission #Bradycardia, - Continue levophed and wean as able - Consult gen surg for gallbladder findings. Will need to have cholecystectomy as outpatient. Consult appreciated. - Continue marin, accurate i/o - COntinue renal diet. - Workup for vasculitis pending. - Nephro on board. Appreciate recommendations. No plan for dialysis for now. - Pt may need kidney biopsy possibly. ? Continue to hydrate patient, add thiamine. HYpernatremic today. Change fluids. ? Zofran and Reglan for nausea and vomiting ? Leukocytosis 2/2 to stress response and c.diff. Continue oral vancomycin. ? BCx Ucx negative to date. C.diff positive. Rotavirus pending - Hb stable. - Possible addition of DDAVP for uremic platelet dysfunction. - Trop elevation most likely due to demand ischemia. Echo negative for WMA. EF 70%. Discussed with cardiology. Will monitor pt for now. THere has been no chest pain. EKG negative for ischemia.? Delta trop negative. - Continue to monitor. - Check overnight pulse ox - Stop zosyn #Hypertension #Hyperlipidemia #Prediabetes ? Hold all home medications for now Full code DVT prophylaxis: SCD for now.? Attestations Medical Necessity Statement*: Critically ill in ICU Coding Level of Care Code Acute Pharmacy Data Analyst for Chg Fwd Diagnoses Hypernatremia E87.0 Porcelain gallbladder K82.8 Leukocytosis D72.829 Diarrhea R19.7 Pre-diabetes R73.03 Hyperlipidemia E78.5 Hypertension I10 Anuria R34 Hematemesis K92.0 Hypotension I95.9 Hypovolemia E86.1 High anion gap metabolic acidosis E87.2 Renal failure N19 Clostridioides difficile diarrhea A04.72
[2021-08-31 13:34] LABS: ABNORMAL PROTEIN BAND 1 0.1 g/dL (NONE DETECTED); ALBUMIN 3.2 g/dL (3.8-4.8); ALPHA 1 GLOBULIN 0.4 g/dL (0.2-0.3); ALPHA 2 GLOBULIN 0.9 g/dL (0.5-0.9); BETA 1 GLOBULIN 0.3 g/dL (0.4-0.6); BETA 2 GLOBULIN 0.3 g/dL (0.2-0.5); GAMMA GLOBULIN 0.8 g/dL (0.8-1.7)
[2021-08-31 18:54] LABS: Anion Gap 17.9 (5-19); Calcium 8.7 mg/dL (8.5-10.5); Carbon Dioxide 26 mmol/L (22-29); Chloride 115 mmol/L (98-107); Glomerular Filtration Rate 11.4 mL/min (90-130); Glucose 150 mg/dL (65-115); Potassium 3.9 mmol/L (3.5-5.1); Sodium 155 mmol/L (136-145)
[2021-08-31 19:27] LABS: Osmolality Calculated 368 mOsm/kg (285-295)
[2021-08-31 19:29] LABS: Blood Urea Nitrogen 139 mg/dL (8-23)
[2021-08-31] MEDS: dextrose 5% 1,000 ML 150 ML IV (22:00)
[2021-09-01] VITALS (24 sets, daily range): BP systolic 92–131; BP diastolic 46–76; PULSE 45–63; RESP 12–25; TEMP 36.5–36.9; O2SAT 94–100
[2021-09-01] MEDS: dextrose 5% 1,000 ML 150 ML IV ×3 (03:59→17:28)
[2021-09-01] MEDS: ondansetron 2 mg/ML SDV 2 mL 4 MG IVP (04:05)
[2021-09-01] MEDS: pantoprazole 40 mg SDV IVP ×2 (05:23→17:07)
[2021-09-01 05:51] LABS: Basophils # 0.1 10^3/uL (0.0-0.1); Basophils % 0.6 %; Eosinophils # 0.4 10^3/uL (0.0-0.8); Eosinophils % 4.4 %; Hematocrit 39.1 % (42.0-52.0); Hemoglobin 13.1 g/dL (11.7-16.6); Lymphocytes # 1.2 10^3/uL (0.8-4.8); Lymphocytes % 14.3 %; Mean Corpuscular HGB Conc 33.5 g/dL (30.0-36.0); Mean Corpuscular Hemoglobin 30.1 pg (28.0-34.0); Mean Corpuscular Volume 89.9 fl (80-94); Mean Platelet Volume 13.6 fL (7.4-10.4); Monocytes # 0.5 10^3/uL (0.2-0.9); Monocytes % 6.3 %; Neutrophils # 6.06 10^3/uL (1.8-7.7); Nucleated Red Blood Cells % 0 %; Platelet Count 87 10^3/cmm (130-400); Red Blood Count 4.35 10^6/uL (4.1-5.3); Red Cell Distribution Width 12.9 % (12.1-15.1); White Blood Count 8.2 10^3/uL (4.0-10.0)
[2021-09-01 06:07] LABS: Alanine Aminotransferase 6 U/L (0-41); Albumin Level 3.1 g/dL (3.5-5.2); Alkaline Phosphatase 55 IU/L (40-130); Anion Gap 13.8 (5-19); Aspartate Amino Transferase 13 U/L (0-40); Calcium 8.2 mg/dL (8.5-10.5); Carbon Dioxide 28 mmol/L (22-29); Chloride 113 mmol/L (98-107); Globulin 2.5 g/dL (1.3-4.6); Glomerular Filtration Rate 15.1 mL/min (90-130); Glucose 213 mg/dL (65-115); Magnesium 2.1 mg/dL (1.7-2.3); Osmolality Calculated 353 mOsm/kg (285-295); Potassium 3.8 mmol/L (3.5-5.1); Sodium 151 mmol/L (136-145); Total Bilirubin 0.3 mg/dL (0.15-1.2); Total Protein 5.6 g/dL (6.6-8.7)
[2021-09-01 06:14] LABS: Slide Review Slide Review Perform
[2021-09-01 06:23] LABS: Blood Urea Nitrogen 111 mg/dL (8-23)
--- NOTE | 2021-09-01 08:24 | P.PN_ITS ---
Subjective Subjective: Seen this morning. Has been bradycardic. Overnight pulse oximetry ordered. Report pending. Possible component of obstructive sleep apnea States he is feeling better. No other acute events overnight. Urine output 2 L overnight. Labs improving. Platelets 87,000, sodium 151, creatinine 4 BUN 111. Denies chest pain, shortness of breath. Vitals/I&O/Wt Last Vital Signs Temp 97.8 F 09/01/21 04:00 Pulse 49 L 09/01/21 06:00 Resp 17 09/01/21 02:00 BP 92/51 09/01/21 06:00 Pulse Ox 97 09/01/21 06:00 08/31/21 09/01/21 09/01/21 22:59 06:59 14:59 Intake Total 2650 / 3050 897.5 / 3947.5 Output Total 2525 / 2525 900 / 3425 Balance 125 / 525 -2.5 / 522.5 Weight last 48 hrs Weight 88.496 kg Weight 88.995 kg Physical Exam Narrative: General: Alert oriented x3, no acute distress HEENT: Normocephalic, atraumatic, EOMI, Cardio: Regular rate rhythm, normal S1-S2, no murmurs, no chest pain Respiratory: Good bilateral air entry, no wheezes no rhonchi appreciated GI: Abdomen soft, nontender, nondistended, bowel sounds +, Behavior: Appropriate and cooperative Extremities: no edema, no cyanosis Urinary Catheter Management: Marin: Cath Placed During This Visit: yes Reason for Continuing Indwelling Catheter: Accurate Measurement of Urinary Output in Critically Ill Patients Urinary Catheter Date of Insertion: 08/29/21 Urinary Catheter Time of Insertion: 18:12 Data : 09/01/21 04:55 09/01/21 04:55 Micro: Microbiology 08/31/21 15:40 Blood Culture - Preliminary Blood SPECIMEN COLLECTED 08/31/21 14:05 Blood Culture - Preliminary Blood SPECIMEN COLLECTED 08/30/21 18:37 Stool Lactoferrin - Final Stool Enteric Pathogens (PCR) - Final Parasite Antigen Panel - Final Occult Blood (FIT) - Final 08/29/21 18:05 Urine Culture - Final Urine,Clean Catch A&P Assessment and plan (1) Clostridioides difficile diarrhea: Status: Acute (2) Hypernatremia: Status: Acute (3) Porcelain gallbladder: Status: Acute (4) Leukocytosis: Status: Acute (5) Diarrhea: Status: Acute (6) Pre-diabetes: Status: Acute (7) Hyperlipidemia: Status: Acute (8) Hypertension: Status: Acute (9) Anuria: Status: Acute (10) Hematemesis: Status: Acute (11) Hypotension: Status: Acute (12) Hypovolemia: Status: Acute (13) High anion gap metabolic acidosis: Status: Acute (14) Renal failure: Status: Acute Plan #Acute renal failure, anuric, most likely 2/2 prerenal cause - Improving #Severe dehydration secondary to nausea, vomiting - Resolved #Diarrhea, 2-3 episodes a day, C.diff positive #High anion gap metabolic acidosis to uremia and element of possible starvation ketosis - Resolved #Hypovolemia #Leukocytosis most likely stress response, and C.diff #Hematemesis - Resolved #Thrombocytopenia 2/2 most likely uremia #Porcelain Gallbladder #Elevated trop at admission #Bradycardia, r/o CARLTON - Continue levophed and wean as able - Consult gen surg for gallbladder findings. Will need to have cholecystectomy as outpatient. Consult appreciated. - Continue marin, accurate i/o - COntinue renal diet. - Vasculitis w/u pending. Some resulted and negative - Nephro on board. Appreciate recommendations. No plan for dialysis for now. ? Continue to hydrate patient, add thiamine. - Sodium 151. COntinue d5W 1/2NS ? Zofran and Reglan for nausea and vomiting ? Leukocytosis 2/2 to stress response and c.diff. Continue oral vancomycin. ? BCx Ucx negative to date. C.diff positive. Rotavirus pending - Hb stable. - Possible addition of DDAVP for uremic platelet dysfunction. Will discuss with nephro - Trop elevation most likely due to demand ischemia. Echo negative for WMA. EF 70%. Discussed with cardiology. Will monitor pt for now. THere has been no chest pain. EKG negative for ischemia.? Delta trop negative. Pt also bradycardic. Will do cardiac stress test prior to discharge once renal function stable. - Continue to monitor. - Check overnight pulse ox, report pending. #Hypertension #Hyperlipidemia #Prediabetes ? Hold all home medications for now Full code DVT prophylaxis: SCD for now.? May be able to move out of ICU to floor today. Attestations Medical Necessity Statement*: Requires continued hospitlization for management of MEERA. WIll need stress test prior to dc as well. Coding Level of Care Code Acute Operations Consultant for Chg Fwd Diagnoses Clostridioides difficile diarrhea A04.72 Hypernatremia E87.0 Porcelain gallbladder K82.8 Leukocytosis D72.829 Diarrhea R19.7 Pre-diabetes R73.03 Hyperlipidemia E78.5 Hypertension I10 Anuria R34 Hematemesis K92.0 Hypotension I95.9 Hypovolemia E86.1 High anion gap metabolic acidosis E87.2 Renal failure N19
--- NOTE | 2021-09-01 08:58 | PM.PN ---
Subjective Subjective: Seen via telemedicine with assistance of RN at bedside. feeling a little better today; continues to report feeling thirsty, drinking water. diarrhea has decreased. Vitals/I&O/Wt Last Vital Signs Temp 97.8 F 09/01/21 04:00 Pulse 48 L 09/01/21 08:00 Resp 12 09/01/21 08:00 BP 123/62 09/01/21 08:00 Pulse Ox 97 09/01/21 08:00 08/31/21 09/01/21 09/01/21 22:59 06:59 14:59 Intake Total 2650 / 3050 897.5 / 3947.5 Output Total 2525 / 2525 900 / 3425 Balance 125 / 525 -2.5 / 522.5 Weight last 48 hrs Weight 88.496 kg Weight 88.995 kg Physical Exam Urinary Catheter Management: Spears: Cath Placed During This Visit: yes Reason for Continuing Indwelling Catheter: Accurate Measurement of Urinary Output in Critically Ill Patients Urinary Catheter Date of Insertion: 08/29/21 Urinary Catheter Time of Insertion: 18:12 Data : 09/01/21 04:55 09/01/21 04:55 Micro: Microbiology 08/31/21 15:40 Blood Culture - Preliminary Blood SPECIMEN COLLECTED 08/31/21 14:05 Blood Culture - Preliminary Blood SPECIMEN COLLECTED 08/30/21 18:37 Stool Lactoferrin - Final Stool Enteric Pathogens (PCR) - Final Parasite Antigen Panel - Final Occult Blood (FIT) - Final 08/29/21 18:05 Urine Culture - Final Urine,Clean Catch A&P Assessment and plan Plan 1. Acute kidney injury, excellent urine output. Presumed prerenal, vasculitis workup pending 2. Hypernatremia, improved, continue hypotonic IVF Recommend: continue IVF 1/2NSS, increase rate to 150 ml/hr, with D5W boluses as needed. Increase water intake. Q12h BMP Attestations Medical Necessity Statement*: see above Coding Level of Care Code Acute Industrial Psychologist for Particia Marcelino
--- NOTE | 2021-09-01 15:22 | PC.SOCIAL ---
IMM Update pg 2 of IMM update and reviewed w/ patient. Copy provided and Copy placed in chart.
[2021-09-01] MEDS: atorvastatin 40 mg Tablet 20 MG PO (17:08)
[2021-09-01 18:40] LABS: Anion Gap 15.3 (5-19); Blood Urea Nitrogen 78 mg/dL (8-23); Calcium 8.3 mg/dL (8.5-10.5); Carbon Dioxide 25 mmol/L (22-29); Chloride 107 mmol/L (98-107); Glomerular Filtration Rate 22.7 mL/min (90-130); Glucose 206 mg/dL (65-115); Osmolality Calculated 327 mOsm/kg (285-295); Potassium 3.3 mmol/L (3.5-5.1); Sodium 144 mmol/L (136-145)
[2021-09-01] MEDS: potassium chloride oral liq 20 mEq/15 mL UDC PO (20:34)
[2021-09-02] VITALS (22 sets, daily range): BP systolic 96–125; BP diastolic 53–79; PULSE 47–81; RESP 10–24; TEMP 36.3–36.9; O2SAT 74–100
[2021-09-02] MEDS: dextrose 5% 1,000 ML 150 ML IV ×4 (00:51→19:01)
[2021-09-02 05:20] LABS: Basophils # 0.1 10^3/uL (0.0-0.1); Basophils % 0.6 %; Eosinophils # 0.4 10^3/uL (0.0-0.8); Eosinophils % 4.8 %; Hematocrit 42.2 % (42.0-52.0); Hemoglobin 13.4 g/dL (11.7-16.6); Lymphocytes # 2.1 10^3/uL (0.8-4.8); Lymphocytes % 24.4 %; Mean Corpuscular HGB Conc 31.8 g/dL (30.0-36.0); Mean Corpuscular Hemoglobin 29.6 pg (28.0-34.0); Mean Corpuscular Volume 93.2 fl (80-94); Mean Platelet Volume 13.7 fL (7.4-10.4); Monocytes # 0.6 10^3/uL (0.2-0.9); Monocytes % 6.5 %; Neutrophils # 5.52 10^3/uL (1.8-7.7); Neutrophils % 63.2 %; Nucleated Red Blood Cells % 0 %; Platelet Count 90 10^3/cmm (130-400); Red Blood Count 4.53 10^6/uL (4.1-5.3); Red Cell Distribution Width 12.3 % (12.1-15.1); White Blood Count 8.7 10^3/uL (4.0-10.0)
[2021-09-02 05:45] LABS: Alanine Aminotransferase 11 U/L (0-41); Albumin Level 3.2 g/dL (3.5-5.2); Alkaline Phosphatase 60 IU/L (40-130); Aspartate Amino Transferase 16 U/L (0-40); Blood Urea Nitrogen 59 mg/dL (8-23); Calcium 8.1 mg/dL (8.5-10.5); Carbon Dioxide 28 mmol/L (22-29); Chloride 106 mmol/L (98-107); Globulin 2.7 g/dL (1.3-4.6); Glomerular Filtration Rate 25.9 mL/min (90-130); Glucose 128 mg/dL (65-115); Osmolality Calculated 314 mOsm/kg (285-295); Phosphorus 1.8 mg/dL (2.5-4.5); Sodium 143 mmol/L (136-145); Total Bilirubin 0.5 mg/dL (0.15-1.2); Total Protein 5.9 g/dL (6.6-8.7)
[2021-09-02 05:46] LABS: Anion Gap 13.3 (5-19); Potassium 4.3 mmol/L (3.5-5.1)
[2021-09-02 05:53] LABS: Slide Review Slide Review Perform
[2021-09-02] MEDS: pantoprazole 40 mg SDV IVP ×2 (06:13→17:12)
--- NOTE | 2021-09-02 06:20 | PC.NURSE ---
Patient transferred to to room 275 per bed, no distress noted. All personal belonging with patient, report given to receiving nurse Nazia.
--- NOTE | 2021-09-02 08:25 | P.PN_ITS ---
Subjective Subjective: Seen this morning. No acute events overnight. LifeVest has been ordered for discharge. Denies any chest pain otherwise but does have pain associated with a sternal fracture. Yesterday code stroke was called after patient complained of blurred vision and did have a homonymous hemianopsia. CTA head and neck was done which was unremarkable. Dr. Engel saw patient and discussed with as well. His symptoms are very inconsistent. However today he feels better and blurred vision has resolved. Patient states he feels okay this morning he does not have any complaints. Vitals/I&O/Wt Last Vital Signs Temp 97.3 F L 09/02/21 06:00 Pulse 61 09/02/21 06:00 Resp 17 09/02/21 06:00 BP 120/76 09/02/21 06:00 Pulse Ox 96 09/02/21 06:00 09/01/21 09/02/21 09/02/21 22:59 06:59 14:59 Intake Total 1422.5 / 2722.5 1927.5 / 4650.0 Output Total 4100 / 4100 675 / 4775 Balance -2677.5 / -1377.5 1252.5 / -125.0 Weight last 48 hrs Weight 88.451 kg Weight 88.496 kg Physical Exam Narrative: General: Alert oriented x3, no acute distress HEENT: Normocephalic, atraumatic, EOMI, Cardio: Regular rate rhythm, normal S1-S2, no murmurs, no chest pain Respiratory: Good bilateral air entry, no wheezes no rhonchi appreciated GI: Abdomen soft, nontender, nondistended, bowel sounds +, Behavior: Appropriate and cooperative Extremities: no edema, no cyanosis Urinary Catheter Management: Marin: Cath Placed During This Visit: yes Reason for Continuing Indwelling Catheter: Accurate Measurement of Urinary O utput in Critically Ill Patients Urinary Catheter Date of Insertion: 08/29/21 Urinary Catheter Time of Insertion: 18:12 Data : 09/02/21 05:05 09/02/21 05:05 Micro: Microbiology 08/31/21 15:40 Blood Culture - Preliminary Blood NEGATIVE TO DATE 08/31/21 14:05 Blood Culture - Preliminary Blood NEGATIVE TO DATE A&P Assessment and plan (1) Bradycardia: Status: Acute (2) Sleep apnea: Status: Acute (3) Clostridioides difficile diarrhea: Status: Acute (4) Hypernatremia: Status: Acute (5) Porcelain gallbladder: Status: Acute (6) Diarrhea: Status: Acute (7) Pre-diabetes: Status: Acute (8) Leukocytosis: Status: Acute (9) Hypertension: Status: Acute (10) Hyperlipidemia: Status: Acute (11) Anuria: Status: Acute (12) Hematemesis: Status: Acute (13) Hypotension: Status: Acute (14) Hypovolemia: Status: Acute (15) High anion gap metabolic acidosis: Status: Acute (16) Renal failure: Status: Acute Plan #Acute renal failure, anuric, most likely 2/2 prerenal cause - Improving #Severe dehydration secondary to nausea, vomiting - Resolved #Diarrhea, 2-3 episodes a day, C.diff positive #High anion gap metabolic acidosis to uremia and element of possible starvation ketosis - Resolved #Hypovolemia #Leukocytosis most likely stress response, and C.diff #Hematemesis - Resolved #Thrombocytopenia 2/2 most likely uremia #Porcelain Gallbladder #Elevated trop at admission #Bradycardia, r/o CARLTON - Continue levophed and wean as able - Consult gen surg for gallbladder findings. Will need to have cholecystectomy as outpatient. Consult appreciated. - Continue marin, accurate i/o - COntinue renal diet. - Vasculitis w/u pending. Some resulted and negative - Nephro on board. Appreciate recommendations. No plan for dialysis for now. ? Continue to hydrate patient, add thiamine. ?Electrolytes have normalized ? Zofran and Reglan for nausea and vomiting ? Leukocytosis 2/2 to stress response and c.diff. Continue oral vancomycin. ? BCx Ucx negative to date. C.diff positive. Rotavirus pending - Hb stable. - Possible addition of DDAVP for uremic platelet dysfunction. Will discuss with nephro - Trop elevation most likely due to demand ischemia. Echo negative for WMA. EF 70%. Discussed with cardiology. Will monitor pt for now. There has been no chest pain. EKG negative for ischemia.? Delta trop negative. Pt also bradycardic. Will do cardiac stress test prior to discharge once renal function stable. - Continue to monitor. -Overnight pulse ox complete. Patient did have 2 episodes of desaturation down to 84%. ? Stress test to be done in a.m. #Hypertension #Hyperlipidemia #Prediabetes ? Hold all home medications for now Full code DVT prophylaxis: SCD for now.? Attestations Medical Necessity Statement*: Requires continued hospitlization for management of MEERA. WIll need stress test prior to dc as well. Coding Level of Care Code Acute Chief Engineer Production for Chg Fwd Diagnoses Bradycardia R00.1 Sleep apnea G47.30 Clostridioides difficile diarrhea A04.72 Hypernatremia E87.0 Porcelain gallbladder K82.8 Diarrhea R19.7 Pre-diabetes R73.03 Leukocytosis D72.829 Hypertension I10 Hyperlipidemia E78.5 Anuria R34 Hematemesis K92.0 Hypotension I95.9 Hypovolemia E86.1 High anion gap metabolic acidosis E87.2 Renal failure N19
[2021-09-02] MEDS: aspirin 81 mg EC Tablet PO (08:32)
--- NOTE | 2021-09-02 09:25 | PM.PN ---
Subjective Subjective: Seen via telemedicine with assistance of RN at bedside. Feeling much better. Drinking fluids. No pain or shortness of breath Vitals/I&O/Wt Last Vital Signs Temp 98.0 F 09/02/21 08:00 Pulse 60 09/02/21 08:00 Resp 16 09/02/21 08:00 BP 125/79 09/02/21 08:00 Pulse Ox 95 09/02/21 08:00 09/01/21 09/02/21 09/02/21 22:59 06:59 14:59 Intake Total 1422.5 / 2722.5 1927.5 / 4650.0 Output Total 4100 / 4100 675 / 4775 Balance -2677.5 / -1377.5 1252.5 / -125.0 Weight last 48 hrs Weight 88.451 kg Weight 88.496 kg Physical Exam Const: COMMON NORMALS: no acute distress and alert Neuro: SENSORIUM/ORIENTATION: Yes alert Urinary Catheter Management: Marin: Cath Placed During This Visit: yes Reason for Continuing Indwelling Catheter: Accurate Measurement of Urinary Output in Critically Ill Patients Urinary Catheter Date of Insertion: 08/29/21 Urinary Catheter Time of Insertion: 18:12 Data : 09/02/21 05:05 09/02/21 05:05 Micro: Microbiology 08/31/21 15:40 Blood Culture - Preliminary Blood NEGATIVE TO DATE 08/31/21 14:05 Blood Culture - Preliminary Blood NEGATIVE TO DATE A&P Assessment and plan Plan 1. Acute kidney injury, likely due to volume depletion. Excellent urine output, renal function continues to improve. 2. Hypernatremia, resolved. Recommend: Agree with discontinuation of IVF if he is able to maintain good oral intake. I recommended removal of marin cathetr - he prefers to wait until tomorrow. Attestations Medical Necessity Statement*: per primary service Time Spent in Patient Care: 16 - 35 minutes Coding Level of Care Code Acute Land Degradation Analyst for Patricia Marcelino
[2021-09-02] MEDS: atorvastatin 40 mg Tablet 20 MG PO (17:12)
[2021-09-03] VITALS (9 sets, daily range): BP systolic 84–151; BP diastolic 49–72; PULSE 59–101; RESP 16–21; TEMP 36.6–37.3; O2SAT 92–98
[2021-09-03 04:25] LABS: Anion Gap 13.4 (5-19); Blood Urea Nitrogen 34 mg/dL (8-23); Calcium 7.7 mg/dL (8.5-10.5); Carbon Dioxide 25 mmol/L (22-29); Chloride 105 mmol/L (98-107); Glomerular Filtration Rate 35.5 mL/min (90-130); Glucose 108 mg/dL (65-115); Magnesium 1.3 mg/dL (1.7-2.3); Osmolality Calculated 298 mOsm/kg (285-295); Phosphorus 1.7 mg/dL (2.5-4.5); Potassium 3.4 mmol/L (3.5-5.1); Sodium 140 mmol/L (136-145)
[2021-09-03] MEDS: pantoprazole 40 mg SDV IVP ×2 (05:22→17:41)
--- NOTE | 2021-09-03 07:00 | ECG_ITS ---
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 Interpretive Statements NAME OF STUDY: LEXISCAN SESTAMIBI STRESS TEST INDICATION: [SB, ] Procedure: At the baseline, the blood pressure was 93/54 mmHg with a heart rate of 83 bpm. The electrocardiogram showed normal sinus rhythm, normal axis with normal ST and T's. The Lexiscan was infused over a period of 20 seconds. A total of 0.4 mg of Lexiscan was infused. The stress phase was continued for a total of 5 minutes. Heart rate was at the end of stress phase was 106 bpm and a blood pressure of 163/52 mmHg. The EKG at the peak infusion revealed since normal sinus rhythm with no significant ST-T wave changes. Sestamibi was injected 20 seconds after the Lexiscan infusion. Blood pressure at the end of recovery phase was 151/35 mmHg with a heart rate of 101 bpm. Conclusion: 1. Normal EKG response to Lexiscan infusion 2. No Lexiscan induced chest pain or cardiac arrhythmia. 3. Normal blood pressure and heart rate response. 4. Sestamibi/sestamibi perfusion scan pending; see separate report. Electronically Signed On 09-15-2021 12:18:02 CDT by Morris Fiore M.D. [id number]
[2021-09-03] MEDS: regadenoson 0.4 Mg/5 ml Syringe IVP (07:45)
--- NOTE | 2021-09-03 08:27 | P.PN_ITS ---
Subjective Subjective: Continues to feel better. Had stress test this morning. Spears removed, urinating without difficuty. Vitals/I&O/Wt Last Vital Signs Temp 98.8 F 09/03/21 04:00 Pulse 100 09/03/21 08:14 Resp 17 09/03/21 04:00 BP 151/72 09/03/21 08:14 Pulse Ox 94 09/03/21 04:00 09/02/21 09/03/21 09/03/21 22:59 06:59 14:59 Intake Total 2200 / 3715 Output Total 1100 / 1100 2300 / 3400 Balance 1100 / 2615 -2300 / 315 Weight last 48 hrs Weight 95.254 kg Weight 88.451 kg Physical Exam Const: COMMON NORMALS: no acute distress and alert Extremity: NARRATIVE EXTREMITY EXAM: no edema Neuro: SENSORIUM/ORIENTATION: Yes alert Urinary Catheter Management: Spears: Cath Placed During This Visit: yes Reason for Continuing Indwelling Catheter: Perioperative Use in Selected Surgeries Urinary Catheter Date of Insertion: 08/29/21 Urinary Catheter Time of Insertion: 18:12 Data : 09/02/21 05:05 09/03/21 02:43 A&P Assessment and plan (1) Acute kidney injury: Status: Acute Plan Seen via telemedicine with assistance of RN at bedside. 1. Acute kidney injury, likely due to volume depletion. Excellent urine output, renal function continues to improve. 2. Hypernatremia, resolved. 3. Hypokalemia, replace oral KCl Recommend: encourage fluid intake. stable for discharge with close follow-up. Attestations Medical Necessity Statement*: per primary service Time Spent in Patient Care: less than 15 minutes Coding Level of Care Code Acute Security Sales Manager for [facility] Fwd Diagnoses Acute kidney injury N17.9
[2021-09-03] MEDS: aspirin 81 mg EC Tablet PO (09:02)
--- NOTE | 2021-09-03 10:32 | PC.SOCIAL ---
IMM update IMM updated with patient. Verbalized an understanding. Copy Pg 2 provided. Initialled, dated, timed, and placed in chart.
--- NOTE | 2021-09-03 10:33 | NMCV_ITS ---
NM aubrey perf SPECT r/s* [id number] Cy Hercules Age: 65 Gender: M : 1955 Exam Date: 09/03/2021 06:52 Ordering Phys: Kaci Sosa MD Technologist: CHRISSY Gomez Exam Location: [facility] Indications: CHEST PAIN STRESS TEST Please see separate stress test report in [facility] for full findings IMAGE PROTOCOL Rest/Stress 1 Lexiscan Day Radiopharmaceutical Dose (mCi) Administration Site Administered by Rest: Tc-99m 10.8 IV CHRISSY Sultana Sestamibi Stress:Tc-99m 32.9 IV CHRISSY Sultana Sestamibi Rest: 03-Sep-2021 60 Discovery 630 Stress: 03-Sep-2021 30 Discovery 630 0.4mg Lexiscan. Images obtained in supine and prone position. SPECT RESULTS Technical Quality: Excellent Raw Data Analysis: Normal Image Corrections: No attenuation or motion correction applied Summed Stress Score: 0 Summed Rest Score: 0 Summed Difference Score: 0 PERFUSION FINDINGS SPECT images demonstrate homogeneous tracer distribution throughout the myocardium. FUNCTIONAL RESULTS (calculated via Gated SPECT) Stress Image LV EF (%): 75 Stress EDV (mL):52 TID: 0.85 Stress ESV (mL):13 FUNCTIONAL FINDINGS: There is normal left ventricular systolic function. IMPRESSIONS 1. Normal myocardial perfusion imaging with no evidence of ischemia 2. LV systolic function is normal Morris Fiore MD (Electronically Signed) Final Date: 03 September 2021 10:13 S
[2021-09-03] MEDS: dextrose 5% 1,000 ML 150 ML IV ×3 (10:55→20:21)
[2021-09-03] MEDS: sodium chloride 0.9% 1,000 ML 999 ML IV (15:25)
[2021-09-03 15:51] LABS: Anti-Nuclear Antibody Screen NEGATIVE (NEGATIVE)
--- NOTE | 2021-09-03 16:22 | P.PN_ITS ---
Subjective Subjective: seen this AM. no acute events overnight. BP soft today, going for stress test today. Vitals/I&O/Wt Last Vital Signs Temp 97.8 F 09/03/21 12:00 Pulse 89 09/03/21 14:00 Resp 17 09/03/21 12:00 BP 91/58 09/03/21 12:00 Pulse Ox 92 09/03/21 12:00 09/03/21 09/03/21 09/03/21 06:59 14:59 22:59 Intake Total 1120 / 1120 Output Total 2300 / 3400 450 / 450 650 / 1100 Balance -2300 / 315 670 / 670 -650 / 20 Weight last 48 hrs Weight 95.254 kg Weight 88.451 kg Physical Exam Narrative: General: Alert oriented x3, no acute distress HEENT: Normocephalic, atraumatic, EOMI, Cardio: Regular rate rhythm, normal S1-S2, no murmurs, no chest pain Respiratory: Good bilateral air entry, no wheezes no rhonchi appreciated GI: Abdomen soft, nontender, nondistended, bowel sounds +, Behavior: Appropriate and cooperative Extremities: no edema, no cyanosis Urinary Catheter Management: Marin: Cath Placed During This Visit: yes, but has since been removed by the nurse Reason for Continuing Indwelling Catheter: Accurate Measurement of Urinary Output in Critically Ill Patients Urinary Catheter Date of Insertion: 08/29/21 Urinary Catheter Time of Insertion: 18:12 Date Urinary Catheter Removed: 09/03/21 Time Urinary Catheter Discontinued: 10:58 Data : 09/02/21 05:05 09/03/21 02:43 Micro: Microbiology 08/29/21 13:01 Blood Culture - Final Blood NO GROWTH AFTER 5 DAYS 08/29/21 13:59 Blood Culture - Final Blood NO GROWTH AFTER 5 DAYS A&P Assessment and plan (1) Acute kidney injury: Status: Acute (2) Bradycardia: Status: Acute (3) Sleep apnea: Status: Acute (4) Clostridioides difficile diarrhea: Status: Acute (5) Hypernatremia: Status: Acute (6) Leukocytosis: Status: Acute (7) Diarrhea: Status: Acute (8) Pre-diabetes: Status: Acute (9) Hyperlipidemia: Status: Acute (10) Hypertension: Status: Acute (11) Hematemesis: Status: Acute (12) Hypotension: Status: Acute (13) Hypovolemia: Status: Acute (14) High anion gap metabolic acidosis: Status: Acute (15) Renal failure: Status: Acute Plan #Acute renal failure, anuric, most likely 2/2 prerenal cause - Improving #Severe dehydration secondary to nausea, vomiting - Resolved #Diarrhea, 2-3 episodes a day, C.diff positive #High anion gap metabolic acidosis to uremia and element of possible starvation ketosis - Resolved #Hypovolemia #Leukocytosis most likely stress response, and C.diff #Hematemesis - Resolved #Thrombocytopenia 2/2 most likely uremia #Porcelain Gallbladder #Elevated trop at admission #Bradycardia, r/o CARLTON - Continue levophed and wean as able - Consult gen surg for gallbladder findings. Will need to have cholecystectomy as outpatient. Consult appreciated. - Continue marin, accurate i/o - COntinue renal diet. - Vasculitis w/u pending. Some resulted and negative - Nephro on board. Appreciate recommendations. No plan for dialysis for now. ? Continue to hydrate patient, add thiamine. ?Electrolytes have normalized ? Zofran and Reglan for nausea and vomiting ? Leukocytosis 2/2 to stress response and c.diff. Continue oral vancomycin. ? BCx Ucx negative to date. C.diff positive. Rotavirus pending - Hb stable. - Possible addition of DDAVP for uremic platelet dysfunction. Will discuss with nephro - Trop elevation most likely due to demand ischemia. Echo negative for WMA. EF 70%. Discussed with cardiology. Will monitor pt for now. There has been no chest pain. EKG negative for ischemia.? Delta trop negative. Pt also bradycardic. Will do cardiac stress test prior to discharge once renal function stable. - Continue to monitor. -Overnight pulse ox complete.? Patient did have 2 episodes of desaturation down to 84%. ? Stress test to be done today. Results pending - Hypotensive. WIll give ns bolus - Repelte electrolytes #Hypertension #Hyperlipidemia #Prediabetes ? Hold all home medications for now Full code DVT prophylaxis: SCD for now.? Attestations Medical Necessity Statement*: BP borderline low, needs electrolyte replacement, stress test today. plan for dc in am Coding Level of Care Code Acute Operator Command Support Systems for g Fwd Diagnoses Acute kidney injury N17.9 Bradycardia R00.1 Sleep apnea G47.30 Clostridioides difficile diarrhea A04.72 Hypernatremia E87.0 Leukocytosis D72.829 Diarrhea R19.7 Pre-diabetes R73.03 Hyperlipidemia E78.5 Hypertension I10 Hematemesis K92.0 Hypotension I95.9 Hypovolemia E86.1 High anion gap metabolic acidosis E87.2 Renal failure N19
[2021-09-03] MEDS: atorvastatin 40 mg Tablet 20 MG PO (17:41)
[2021-09-03] MEDS: potassium chloride ER 20 mEq Tablet PO (17:43)
[2021-09-04] VITALS: BP 108/65; PULSE 80; RESP 17; TEMP 37.2; O2SAT 100
[2021-09-04] MEDS: dextrose 5% 1,000 ML 150 ML IV ×2 (00:50→05:01)
[2021-09-04 04:00] VITALS: BP 96/53; PULSE 65; RESP 17; TEMP 37.2; O2SAT 98
[2021-09-04 04:24] LABS: Anion Gap 11.9 (5-19); Blood Urea Nitrogen 19 mg/dL (8-23); Calcium 7.6 mg/dL (8.5-10.5); Carbon Dioxide 27 mmol/L (22-29); Chloride 107 mmol/L (98-107); Glomerular Filtration Rate 37.8 mL/min (90-130); Glucose 111 mg/dL (65-115); Magnesium 1.4 mg/dL (1.7-2.3); Osmolality Calculated 297 mOsm/kg (285-295); Potassium 3.9 mmol/L (3.5-5.1); Sodium 142 mmol/L (136-145)
[2021-09-04] MEDS: pantoprazole 40 mg SDV IVP (04:59)
[2021-09-04 05:47] VITALS: PULSE 69
[2021-09-04 07:21] VITALS: BP 102/66; PULSE 71; RESP 14; TEMP 36.8; O2SAT 98
[2021-09-04] MEDS: calcium gluconate 0.9% NaCL 1 GM/50 ML PREMIX IV (08:23)
[2021-09-04] MEDS: phosphorus 250 mg Tablet PO (08:24)
[2021-09-04] MEDS: aspirin 81 mg EC Tablet PO (08:24)
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
[2021-09-04] MEDS: magnesium sulfate premix 4 GM/100 ML PREMIX IV (08:37)
[2021-09-04 11:23] VITALS: BP 100/59; PULSE 87; RESP 18; TEMP 36.8; O2SAT 97
--- NOTE | 2021-09-04 14:14 | PC.NURSE ---
discharge instructions given and explained.pt and verb understanding of instructions.discharged via w/c to exit.pt to call taxi to take him home.
[2021-09-04 14:15] VITALS: BP 100/59; PULSE 87; RESP 18; TEMP 36.8; O2SAT 97
[2021-09-04 14:24] LABS: ANCA Screen NEGATIVE (NEGATIVE)
== END 2021-09-04 14:16 | disposition home or self-care (01) | DRG 683 ==
LOC: ER 11:04 → ICU 14:54 → MEDSURG 09-02 06:02
PROVIDERS: Internal Medicine; Internal Medicine Nephrology; Admitting Provider Internal Medicine; Emergency Provider Emergency Medicine; PCP Family Medicine; Visit Provider Internal Medicine
DX: N17.9 Acute kidney failure, unspecified (principal); A04.72 Enterocolitis due to Clostridium difficile, not specified as recurrent; E87.0 Hyperosmolality and hypernatremia; E87.2 Acidosis; K92.0 Hematemesis; I95.9 Hypotension, unspecified; I10 Essential (primary) hypertension; E78.5 Hyperlipidemia, unspecified; F17.200 Nicotine dependence, unspecified, uncomplicated; E86.1 Hypovolemia; R73.03 Prediabetes; E86.0 Dehydration; K82.8 Other specified diseases of gallbladder; D69.6 Thrombocytopenia, unspecified; Z79.82 Long term (current) use of aspirin; R00.1 Bradycardia, unspecified; E87.6 Hypokalemia; G47.33 Obstructive sleep apnea (adult) (pediatric)
CPT/HCPCS: 36415; 51702; 71045; 74176; 76705; 78452; 80048; 80051; 80053; 81001; 81003; 82009; 82274; 82330; 82550; 82570; 82575; 82805; 83605; 83630; 83690; 83735; 84100; 84145; 84155; 84156; 84165; 84300; 84443; 84484; 84550; 85025; 85610; 85730; 86036; 86038; 86160; 86850; 86900; 87040; 87086; 87425; 87426; 87493; 87506; 93005; 93017; 93306; 96365; 96367; 96375; 99291; 99292; A9500; C9113; J0610; J2405; J2543; J2785; J3370; J3411; J3475; J7030; Q3014

== ENCOUNTER → 2021-09-05 13:40 | Outpatient (BNVA) | payer OTHER, MEDICARE, MEDICAID, SELFPAY | PROVIDERS: PCP Family Medicine; Visit Provider Internal Medicine | DX: Z53.9 Procedure and treatment not carried out, unspecified reason (principal) | CPT/HCPCS: 93229 ==

== ENCOUNTER → 2021-09-24 13:02 | Outpatient (BNVA) | payer OTHER, SELFPAY | PROVIDERS: PCP Family Medicine; Visit Provider Internal Medicine | DX: I10 Essential (primary) hypertension (principal); E78.5 Hyperlipidemia, unspecified | CPT/HCPCS: 99204 ==

== ENCOUNTER → 2021-10-04 15:12 | Outpatient (BNVA) | payer OTHER, SELFPAY | PROVIDERS: PCP Family Medicine; Visit Provider Surgery | DX: K82.8 Other specified diseases of gallbladder (principal) | CPT/HCPCS: 99213 ==

== ENCOUNTER 2021-10-16 07:14 | Day surgery (SDC) | payer OTHER, SELFPAY ==
[2021-10-11 12:41] VITALS: BMI 26.9
--- NOTE | 2021-10-11 12:52 | ANES.PREANE2 ---
Pre-Anesthetic Assessment Height/Weight: Height 1.88 m Weight 95.254 kg Operation Date: 10/16/21 09:10 Proposed Procedures p Laparoscopic Cholecystectomy 16953,K82.8(Not Applicable) - Scott Sky MD Familial anesthetic complications: None Social Tobacco and No alcohol Exam alert, oriented x 3, clear to auscultation bilaterally and regular rate & rhythm Airway Mallampati: Class III Dentition: other (no teeth) Pulmonary Sleep Apnea CV/HEM Arrythmia (bradycardia) and Hypertension 09/03/21 Myocardial Perfusion IMPRESSIONS ?1. Normal myocardial perfusion imaging with no evidence of ischemia ?2. LV systolic function is normal 08/29/21 ECHO CONCLUSIONS ?Normal left ventricular size and systolic function, EF 70 %. ?No regional wall motion abnormalities. ?Trace tricuspid valve regurgitation. ?There is no pericardial effusion. ?There are no intracardiac masses. ?No similar previous studies are available for comparison None reported Hepatic None reported GI None reported Metabolic None reported Musc/skel None reported Neuropsych None reported Anesthetic Plan ASA status: 3 Anesthesia: General Risk of > 500 ml blood loss (7ml/kg in children): No Medications/Allergies Home Medications Medication Instructions Recorded Confirmed Last Taken Type atorvastatin 40 mg tablet 40 mg PO QPM 08/29/21 10/11/21 08/28/21 History cholecalciferol (vitamin D3) 50 50 mcg PO BID 08/29/21 10/11/21 08/29/21 History mcg (2,000 unit) capsule omega 7-ybw-lqz-fish oil 1,000 mg 1 cap PO BID 08/29/21 10/11/21 08/29/21 History (120 mg-180 mg) capsule (Fish Oil) multivitamin 1 tab PO DAILY 10/11/21 10/11/21 Unknown History Allergies Allergy/AdvReac Type Severity Reaction Status Date / Time No Known Allergies Allergy Verified 10/11/21 12:41 [facility] Anesthesia Medical History Acute kidney injury Family History Grandfather Heart attack Father COPD (chronic obstructive pulmonary disease) Social History Smoking and tobacco status: never smoked Alcohol intake: never Data Anesthesia Cardiac Studies: Echocardiogram 08/29/21 Sestamibi Stress Test (Cardiology) 09/03/21 Cardiac Event Monitor 09/05/21
[2021-10-16] VITALS (12 sets, daily range): BP systolic 130–224; BP diastolic 65–106; PULSE 69–89; RESP 13–18; TEMP 36.3–36.8; O2SAT 95–99
--- NOTE | 2021-10-16 07:22 | ANES.PREANE2 ---
Pre-Anesthetic Assessment Height/Weight: Height 1.88 m Weight 95.254 kg Preop Diagnosis: Porcelain gallbladder Operation Date: 10/16/21 09:10 Proposed Procedures p Laparoscopic Cholecystectomy 31046,K82.8(Not Applicable) - Scott Sky MD Social No alcohol and No tobacco Pulmonary Sleep Apnea CV/HEM Hypertension Chronic Renal Insufficiency MEERA in August GI Hx of C. diff Metabolic Diabetes Mellitus (Pre diabetes ) and Hyperlipidemia Medications/Allergies Home Medications Medication Instructions Recorded Confirmed Last Taken Type atorvastatin 40 mg tablet 40 mg PO QPM 08/29/21 10/16/21 10/13/21 History cholecalciferol (vitamin D3) 50 50 mcg PO BID 08/29/21 10/16/21 10/13/21 History mcg (2,000 unit) capsule omega 8-kne-jrk-fish oil 1,000 mg 1 cap PO BID 08/29/21 10/16/21 10/13/21 History (120 mg-180 mg) capsule (Fish Oil) multivitamin 1 tab PO DAILY 10/11/21 10/16/21 10/13/21 History Allergies Allergy/AdvReac Type Severity Reaction Status Date / Time No Known Allergies Allergy Verified 10/11/21 12:41 [facility] Anesthesia Medical History Acute kidney injury Family History Grandfather Heart attack Father COPD (chronic obstructive pulmonary disease) Social History Smoking and tobacco status: never smoked Alcohol intake: never Data Anesthesia Cardiac Studies: Echocardiogram 08/29/21 Sestamibi Stress Test (Cardiology) 09/03/21 Cardiac Event Monitor 09/05/21
--- NOTE | 2021-10-16 07:56 | W.PM.OPSUD ---
Surgery/Procedure H&P Update DATE OF PROCEDURE: October 16, 2021 DATE H&P PERFORMED: 10/04/21 H&P UPDATE INFORMATION: I have reviewed H&P completed within last 30 days, I have examined patient prior to procedure and Changes to prior documentation as noted here (Patient was placed on liquid protein diet prior to surgery) PREOP DIAGNOSIS: Porcelain gallbladder PRIMARY INDICATION FOR PROCEDURE: The same PLANNED PROCEDURE: Operation Date: 10/16/21 09:10 Proposed Procedures p Laparoscopic Cholecystectomy 34127,K82.8(Not Applicable) - Scott Sky MD
[2021-10-16] MEDS: sodium chloride 0.9% 1,000 ML 30 ML IV (08:00)
--- NOTE | 2021-10-16 08:14 | ANES.PAUD2 ---
Pre-Anesthetic Update Pre-Anesthetic Assessment: Date of Surgery/Procedure: 10/16/21 Preop Diagnosis: Porcelain gallbladder Proposed Procedure: Operation Date: 10/16/21 09:10 Proposed Procedures p Laparoscopic Cholecystectomy 08788,K82.8(Not Applicable) - Scott Sky MD Any changes to Pre-Anesthetic Assessment?: No Last Intake: Intake Last Liquid Date 10/15/21 Last Liquid Time 19:00 Last Solid Date 10/07/21 Last Solid Time 16:00 Vitals: Temperature 97.6 F 10/16/21 07:42 Temperature Source Temporal Artery S can 10/16/21 07:42 Pulse Rate 69 10/16/21 07:42 Respiratory Rate 16 10/16/21 07:42 Blood Pressure 132/84 10/16/21 07:42 Blood Pressure Jacque n 100 10/16/21 07:42 Pulse Oximetry 99 10/16/21 07:42 Oxygen Delivery Me thod 10/16/21 07:42 Exam: Pre-Anes Outpt Exam: alert, oriented x 3, clear to auscultation bilaterally and regular rate & rhythm Other Pertinent Information: Other Pertinent Information: Patient Holter monitor shows sinus rhythm with run of VTACH (9 beats) w/o asymptomatic No difficulty with urination, no new leg swelling, no dizziness, no palpitations. MEERA thought to be pre renal associated with C. difficile. Thrombocytopenia attributed to uremia. In order to re-establish baseline will draw BMP and CBC and proceed with surgery today. Cardiac Studies: Echocardiogram 08/29/21 Sestamibi Stress Test (Cardiology) 09/03/21 Cardiac Event Monitor 09/05/21
[2021-10-16] MEDS: heparin 5,000 unit/mL INJ 1 mL 3000 UNIT SUBCUT (08:25)
[2021-10-16 08:28] LABS: Basophils % 0.4 %; Eosinophils # 0.3 10^3/uL (0.0-0.8); Eosinophils % 3.4 %; Hematocrit 38.2 % (42.0-52.0); Hemoglobin 12.6 g/dL (11.7-16.6); Lymphocytes # 1.8 10^3/uL (0.8-4.8); Lymphocytes % 24.2 %; Mean Corpuscular Hemoglobin 30.3 pg (28.0-34.0); Mean Corpuscular Volume 91.8 fl (80-94); Mean Platelet Volume 11.5 fL (7.4-10.4); Monocytes # 0.6 10^3/uL (0.2-0.9); Monocytes % 7.8 %; Neutrophils # 4.76 10^3/uL (1.8-7.7); Neutrophils % 64.1 %; Nucleated Red Blood Cells % 0 %; Platelet Count 239 10^3/cmm (130-400); Red Blood Count 4.16 10^6/uL (4.1-5.3); Red Cell Distribution Width 13.4 % (12.1-15.1); White Blood Count 7.4 10^3/uL (4.0-10.0)
[2021-10-16] MEDS: ampicillin-sulbactam 3 GM in sodium chloride 0.9% (plus) 50 ML IV (08:28)
[2021-10-16] MEDS: lidocaine 2% INJ 20 mL INJECTION (08:48)
--- NOTE | 2021-10-16 09:31 | PM.OP ---
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 Time-out was done verifying the patient's name/date of /planned procedure and destination after the procedure, all were in agreement. SCDs confirmed to be functioning, preoperative antibiotics administered per protocol, and beta gissel protocol was confirmed. Patient was appropriately secured to the table, footboard was applied to the OR table, before prep and drape anesthesia was asked to tilt the table back and forth to make sure that the patient is appropriately secured and she was. Prep and drape of the abdomen was done under the usual sterile technique, followed by that supraumbilical skin incision,skin incision was done by a 15 blade knife, incidental finding of umbilical hernia was identified and dissected and the preperitoneal fat was sent for permanent pathology, the defect was incorporated with the entrance of the Zapien trocar. Stay sutures were applied to the fascia and Zapien trocar technique was used to enter the abdominal without injuring any abdominal viscera, started by low flow gas insufflation followed by a high flow, started with a 10 mm laparoscope and under direct vision there was no evidence of any injuries, the scope then switched to a 30? ,10 millimeter scope and under direct visualization 5 millimeter trocar was inserted in the epigastric region followed by two 5 mm trocars were inserted in the right upper quadrant that was done after injection of local lidocaine 2% at all incision sites. Gallbladder showed chronic cholecystitis/contracted gallbladder, there was no evidence of liver metastatic disease or carcinomatosis or ascites. Patient was then positioned in the head up and tilted to the left. Ratcheted forceps were introduced into the lateral most 5mm port and was applied unto the fundus of the gallbladder cephalad and using Bullet forceps the infundibulum of the gallbladder was retracted laterally. Using [place] forceps then L-hook cautery to dissect the peritoneum overlying the Calot's triangle which was then opened medially and laterally until the cystic duct and the cystic artery were skeletonized. Dissection was carried along the body of the gallbladder and after ensuring critical view of safety was identfied. Cystic duct and cystic artery where seen connected to the gallbladder. Clips were applied on the cystic duct towards the common bile duct 1 towards the gallbladder then divided is in sharp scissors, 2 clips were then applied onto the cystic artery and 1 towards the gallbladder and divided by sharp scissors. Additional traversing vessels were clipped and divided. Dissection was then carried along of the gallbladder from the gallbladder fossa using cautery as well as sharp dissection with heat energy. The gallbladder then was dissected out from the gallbladder fossa totally , cholecystectomy was then achieved and was placed in an Endo Catch bag and then retrieved from the Zapien trocar site under direct visualization using a 5 mm 30? scope through the epigastric trocar, specimen was then passed to the circulating nurse to go for permanent pathology,irrigation and hemostasis was done to the gallbladder fossa after hemostasis was secured and pieces of Surgicel were placed at the gallbladder fossa, final survey laparoscopy was done that showed no injuries. Suction irrigation was obtained The supraumbilical/umbilical hernia fascial defect was then closed using interrupted number one PDS sutures using a fascial closure device ;Kendrick Muñoz under direct visualization following that Gas was allowed to deflate,Trocars were then taken out under direct vision there was no evidence of bleeding. Specimen was passed to the circulating nurse for permanent pathology. No drains were placed and the supraumbilical incision as well as all trocar sites were closed by 3/0 Vicryl followed by 4-0 Monocryl to approximate the skin edges of the incisions , dressing was applied in the form of surical glue and the patient patient got extubated and was taken to recovery area in a stable condition. Count of sponges,needles and instruments were completed at the end of the procedure I was present for the whole entire procedure.
[2021-10-16] MEDS: HYDROcodone-acetaminophen 5-325 mg Tablet 1 TAB PO (10:29)
--- NOTE | 2021-10-16 10:36 | ANE.PACU2 ---
Inpatient post-anesthesia follow up: Airway intact: Yes Vital signs: Temperature 98.2 F Pulse Rate 76 Respiratory Rate 16 Blood Pressure 136/72 Pulse Oximetry 96 Oxygen Delivery Me thod Room Air Oxygen Flow Rate 0 Fraction of Inspir ed Oxygen Hydration adequate: Yes Nausea and vomiting: No Pain level: 1 Mental status: Baseline
[2021-10-16 10:59] LABS: Blood Urea Nitrogen 17 mg/dL (8-23); Calcium 8.8 mg/dL (8.5-10.5); Carbon Dioxide 22 mmol/L (22-29); Chloride 105 mmol/L (98-107); Glomerular Filtration Rate 60.2 mL/min (90-130); Glucose 140 mg/dL (65-115); Osmolality Calculated 294 mOsm/kg (285-295); Sodium 140 mmol/L (136-145)
[2021-10-16 11:03] LABS: Anion Gap 17.4 (5-19); Potassium 4.4 mmol/L (3.5-5.1)
== END 2021-10-16 12:43 | disposition home or self-care (01) ==
PROVIDERS: Anesthesiology; PCP Family Medicine; Visit Provider Surgery
PROC: 0FT44ZZ Resection of Gallbladder, Percutaneous Endoscopic Approach (ICD-10-PCS; CPT 47562; principal; 2021-10-16 09:00)
DX: K81.1 Chronic cholecystitis (principal); I10 Essential (primary) hypertension; G47.30 Sleep apnea, unspecified
CPT/HCPCS: 47562; 49652; 36415; 80048; 85025; 88302; 88304; J0295; J0360; J1100; J1644; J2704; J2710; J3010; J3490; J3535; J7030

== ENCOUNTER → 2021-10-25 15:15 | Outpatient (BNVA) | payer OTHER, SELFPAY | PROVIDERS: PCP Family Medicine; Visit Provider Surgery | DX: Z98.890 Other specified postprocedural states (principal); Z90.49 Acquired absence of other specified parts of digestive tract | CPT/HCPCS: 99024 ==

== ENCOUNTER → 2021-12-19 13:32 | Outpatient (BNVA) | payer OTHER, SELFPAY | PROVIDERS: PCP Family Medicine; Visit Provider Surgery | DX: Z98.890 Other specified postprocedural states (principal); Z90.49 Acquired absence of other specified parts of digestive tract | CPT/HCPCS: 99024 ==

== ENCOUNTER → 2022-09-24 12:18 | Outpatient (BNVA) | payer OTHER, SELFPAY | PROVIDERS: PCP Family Medicine; Visit Provider Internal Medicine | DX: E78.5 Hyperlipidemia, unspecified (principal); I10 Essential (primary) hypertension; F17.200 Nicotine dependence, unspecified, uncomplicated | CPT/HCPCS: 99213 ==